=== PATIENT | male | born 1955 ===

== ENCOUNTER 2020-03-29 14:25 | Outpatient (REF) | payer MEDICARE, SELFPAY | END 2020-03-29 14:26 | disposition home or self-care (01) | LOC: HO.LAB 14:25 | PROVIDERS: Visit Provider Internal Medicine | DX: Z20.822 Contact with and (suspected) exposure to COVID-19 (principal) | CPT/HCPCS: 36415; C9803; U0003 ==

== ENCOUNTER → 2021-02-16 10:38 | Outpatient (BNVA) | payer MEDICARE, SELFPAY | PROVIDERS: PCP Internal Medicine; Visit Provider Urology | DX: N48.6 Induration penis plastica (principal); N40.1 Benign prostatic hyperplasia with lower urinary tract symptoms; N52.01 Erectile dysfunction due to arterial insufficiency; N13.8 Other obstructive and reflux uropathy | CPT/HCPCS: 99212 ==

== ENCOUNTER → 2021-03-23 12:45 | Outpatient (BNVA) | payer MEDICARE, SELFPAY | PROVIDERS: PCP Internal Medicine; Visit Provider Urology | DX: N48.6 Induration penis plastica (principal); N52.01 Erectile dysfunction due to arterial insufficiency; N40.1 Benign prostatic hyperplasia with lower urinary tract symptoms; N13.8 Other obstructive and reflux uropathy; E11.9 Type 2 diabetes mellitus without complications | CPT/HCPCS: 99212 ==

== ENCOUNTER → 2021-06-21 15:00 | Outpatient (BNVA) | payer MEDICARE, SELFPAY | PROVIDERS: PCP Internal Medicine; Visit Provider Urology | DX: N48.6 Induration penis plastica (principal); N52.03 Combined arterial insufficiency and corporo-venous occlusive erectile dysfunction; R73.03 Prediabetes; E78.5 Hyperlipidemia, unspecified | CPT/HCPCS: 99212 ==

== ENCOUNTER → 2021-06-21 15:13 | Outpatient (BNVA) | payer MEDICARE, SELFPAY | PROVIDERS: PCP Internal Medicine; Visit Provider Urology | DX: Z13.89 Encounter for screening for other disorder (principal) ==

== ENCOUNTER → 2021-09-07 08:32 | Outpatient (BNVA) | payer MEDICARE, SELFPAY | PROVIDERS: PCP Internal Medicine; Visit Provider Urology | DX: N48.6 Induration penis plastica (principal); N52.01 Erectile dysfunction due to arterial insufficiency | CPT/HCPCS: Q3014 ==

== ENCOUNTER 2021-10-24 10:41 | Day surgery (SDC) | payer MEDICARE, SELFPAY ==
--- NOTE | 2021-10-21 10:30 | HO.ANESPROP2 ---
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 Mother No problems noted. Surgical History Surgical History H/O shoulder surgery Social History Social History Patient Tobacco Use Status: Current everyday Tobacco user Tobacco use type: Cigarette Cigarette Packs Per Day: 10 Cigarettes Per Day: 200.0 Smoked in Last 30 Days: Yes Patient Interested in Nicotine Replacement: No Patient Given Instructions on How to Stop Smoking: Yes Date Education Initiated: 10/24/21 Second Hand Smoke Exposure: Yes Use of substances other than those prescribed or required for medical reasons: No Are you DNR?: No Advance Directives: No Advance Directives Information Provided: Yes Meds Allergies Allergy/AdvReac Type Severity Reaction Status Date / Time acetaminophen AdvReac Mild Stomach Verified 10/24/21 10:53 Upset Home Medications Medication Instructions Recorded Confirmed Last Taken Type amitriptyline 25 mg tablet mg PO BEDTIME 12/13/19 12/13/19 10/23/21 History atorvastatin 40 mg tablet 40 mg PO DAILY 12/13/19 10/24/21 10/23/21 History gabapentin 600 mg tablet 600 mg PO BID 12/13/19 10/18/21 10/23/21 History glipizide 5 mg tablet, extended 5 mg PO BID 12/13/19 10/18/21 10/23/21 History release 24 hr lisinopril 2.5 mg tablet 2.5 mg PO DAILY 12/13/19 10/18/21 10/23/21 History nicotine (polacrilex) 2 mg buccal 2 mg PO dyspnea 12/13/19 12/13/19 10/23/21 History lozenge omeprazole 20 mg capsule,delayed 20 mg PO DAILY 12/13/19 10/18/21 10/24/21 History release cholecalciferol (vitamin D3) 25 25 mcg PO DAILY 03/23/21 10/18/21 10/23/21 History mcg (1,000 unit) capsule ferrous gluconate 324 mg (38 mg 324 mg PO BEDTIME 03/23/21 10/18/21 10/23/21 History iron) tablet hydrocortisone 2.5 % topical cream appl topical 03/23/21 10/23/21 History blood sugar diagnostic (FSLogixTouch #10 ea 09/07/21 10/23/21 History Verio test strips) lancets 33 gauge (OneTouch Delica #100 ea 09/07/21 10/23/21 History Plus Lancet) trazodone 50 mg tablet 50 mg PO BEDTIME 09/07/21 10/18/21 10/23/21 History Exam Exam Date and Time: October 21, 2021 1030 Assessment and Plan Assessment Anesthesia Assessment: Chart Reviewed Documented by User: Lucy Bain MD 10/24/21 13:47 [facility] Past Medical History Medical History 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 Mother No problems noted. Family history of problems with anesthesia: No Surgical History Surgical History H/O shoulder surgery History of Problems with Anesthesia: No Social History Social History Patient Tobacco Use Status: Current everyday Tobacco user Tobacco use type: Cigarette Cigarette Packs Per Day: 10 Cigarettes Per Day: 200.0 Smoked in Last 30 Days: Yes Patient Interested in Nicotine Replacement: No Patient Given Instructions on How to Stop Smoking: Yes Date Education Initiated: 10/24/21 Second Hand Smoke Exposure: Yes Use of substances other than those prescribed or required for medical reasons: No Are you DNR?: No Advance Directives: No Advance Directives Information Provided: Yes Meds Allergies Allergy/AdvReac Type Severity Reaction Status Date / Time acetaminophen AdvReac Mild Stomach Verified 10/24/21 10:53 Upset Home Medications Medication Instructions Recorded Confirmed Last Taken Type amitriptyline 25 mg tablet mg PO BEDTIME 12/13/19 12/13/19 10/23/21 History atorvastatin 40 mg tablet 40 mg PO DAILY 12/13/19 10/24/21 10/23/21 History gabapentin 600 mg tablet 600 mg PO BID 12/13/19 10/18/21 10/23/21 History glipizide 5 mg tablet, extended 5 mg PO BID 12/13/19 10/18/21 10/23/21 History release 24 hr lisinopril 2.5 mg tablet 2.5 mg PO DAILY 12/13/19 10/18/21 10/23/21 History nicotine (polacrilex) 2 mg buccal 2 mg PO dyspnea 12/13/19 12/13/19 10/23/21 History lozenge omeprazole 20 mg capsule,delayed 20 mg PO DAILY 12/13/19 10/18/21 10/24/21 History release cholecalciferol (vitamin D3) 25 25 mcg PO DAILY 03/23/21 10/18/21 10/23/21 History mcg (1,000 unit) capsule ferrous gluconate 324 mg (38 mg 324 mg PO BEDTIME 03/23/21 10/18/21 10/23/21 History iron) tablet hydrocortisone 2.5 % topical cream appl topical 03/23/21 10/23/21 History blood sugar diagnostic (OneTouch #10 ea 09/07/21 10/23/21 History Verio test strips) lancets 33 gauge (DamirTouch Sidar #100 ea 09/07/21 10/23/21 History Plus Lancet) trazodone 50 mg tablet 50 mg PO BEDTIME 09/07/21 10/18/21 10/23/21 History Exam Airway Mallampati Class: I TM Dist: >3cm Neck ROM: Full Heart: RRR Lungs: CTA Assessment and Plan Final Anesthetic Review Family History of Problems with Anesthesia: No History of Problems with Anesthesia: No ASA Class: II Final Preanesthetic Review: No Changes in Pt Med Stat, Meds/Allgs Chart Reviewed, Consent Obtained/Reviewed and Anes Risks/Benef Reviewed Patient Risk: Intermediate Procedure Risk: Low Anesthetic Plan Anesthetic Plan: GA Disposition: Standard PACU
[2021-10-24] VITALS (9 sets, daily range): BP systolic 112–156; BP diastolic 50–78; PULSE 75–90; RESP 15–18; TEMP 36.6–36.9; O2SAT 95–99; BMI 28.7
--- NOTE | 2021-10-24 | ECG_ITS ---
Test Reason : preop Blood Pressure : / mmHG Vent. Rate : 083 BPM Atrial Rate : 083 BPM P-R Int : 206 ms QRS Dur : 084 ms QT Int : 346 ms P-R-T Axes : 055 001 020 degrees QTc Int : 406 ms Normal sinus rhythm Normal ECG No previous ECGs available Referred By: Emma Iraheta Electronically Signed By:INA LEONE
[2021-10-24 11:03] LABS: PLT CLUMP 1
[2021-10-24 11:05] LABS: Hematocrit 40.1 % (42.0-52.0); Hemoglobin 13.2 g/dl (14.0-18.0); Mean Corpuscular HGB Conc 32.9 g/dl (31.0-36.0); Mean Corpuscular Hemoglobin 30.3 pg (27.0-33.0); Mean Corpuscular Volume 92.2 fL (80.0-98.0); Mean Platelet Volume 10.6 fL (9.4-12.4); Red Blood Count 4.35 X10*6/uL (4.60-5.80); Red Cell Distribution Width 13.2 % (11.0-16.0)
[2021-10-24 11:09] LABS: Platelet Count 136 X10*3/uL (160-400); White Blood Count 6.8 X10*3/uL (4.8-10.8)
[2021-10-24 11:16] LABS: Anion Gap 13 (12-20); Blood Urea Nitrogen 18 mg/dL (9-16); Calcium 8.9 mg/dL (8.4-10.2); Carbon Dioxide 26 mmol/L (22-29); Chloride 107 mmol/L (96-108); Creatinine Clr Calc Pharmacy 68.5; Estimated Glomerular Filt Rate > 60; Glucose Fasting 145 mg/dL (60-99); Potassium 4.2 mmol/L (3.3-5.1); Sodium 142 mmol/L (135-145)
[2021-10-24] MEDS: Lactated Ringers 1,000 ML 100 ML IVCONT (11:39)
[2021-10-24 11:53] LABS: Glucose, Whole Blood 130 mg/dL (60-115)
--- NOTE | 2021-10-24 13:47 | MHC.SHP ---
Pre-Procedural Eval Section A Date of Service: 10/24/21 The patient is an INPATIENT: No Changes since office visit: No Cold of Flu in the past 2 weeks, No New Medical Problems, No Changes in Medication and No Patient answered all questions The History & Physical has been completed within 30 days and I have reviewed it.: Yes Section B Chief Complaint: Induration penis plastica Details of Present Illness: Peyronie's disease Relevant Family History (Specify if Yes): No Relevant Social History: None Present Medications: see Short Stay Collaborative assessment Medical History: No relevant PMH History of Previous Operations: No relevant previous surgery Allergies: Allergies Allergy/AdvReac Type Severity Reaction Status Date / Time acetaminophen AdvReac Mild Stomach Verified 10/24/21 10:53 Upset Review of Systems Sugical H&P ROS: Negative: Constitution, Cardiovascular, Respiratory, Neurological, Psychiatric, Hem-Onc, Allergic/Immunologic, Gastrointestinal, Genitourinary, Musculoskeletal, Integumentary, Endocrine and Eyes/Ears/Nose/Throat Exam Surgical H&P Exam: Normal: HEENT, Normal: Heart, Normal: Lungs, Normal: Extremities, Normal: Abdomen, Normal: Skin and Normal: Neurological Plan Diagnosis/Plan: Unchanged ( Peyroenies plication with artificial erection) I have reviewed the history and physical and performed a pertinent physical examination on my patient. No changes have occurred unless specified.
--- NOTE | 2021-10-24 15:33 | P.OP_ITS ---
Operative Note Operative Note Date of Service: 10/24/21 Narrative: PreOperative Diagnosis: Peyronie's disease with ventral penile curvature Post Operative Diagnosis: Peyronie's disease with ventral curvature Procedure: artificial erection with penile plication Surgeon: Dr Ronald Sotelo Anesthesia: general Indications for procedure: Penile curvature that has failed conservative therapy. The patient had undergone intermittent vacuum pump therapy with failure of resolution. Current erection with 45 degree ventral curvature. 0 degrees horizontal curvature. Curvature in distal half of penis when erect. [place] understands available options including risks for erectile dysfunction, bruising, need for secondary procedure. at baseline has minimal erectile issues. Procedure: After informed consent was verified the patient was brought to the operating room and placed in a supine position. Anesthesia was administered per protocol. The patient was prepped and draped in a sterile fashion. Safety pause time-out was performed. Antibiotics have been given. He has an intact foreskin. The foreskin was intact. Incision made at junction between foreskin and normal shaft tissue. This was placed after local anesthetic nerve block placed. the penis was then fully degloved. Using a [place] drain and a 21 gauge butterfly needle an artificial erection was induced with injectable saline 60cc. Using a marking pen 16 dots were placed 8 proximal and 8 distal to the point of maximum curvature as described by Demario. On each side the dots were placed 4 mm from the boundary between the spongiosum and the corpora. 3-0 Surgilon sutures were then placed through the 16 dots to create 8 separate sutures secured with rubber shod snaps. Each dot was touched with cautery prior to suture placement to reduce postprocedure neuralgia. A single tie was placed through each suture with rubber shod placed to control tension using a toothless picking machine operator helper below throw. The erection was reinforced and each suture was adjusted with 5 ties in order to give correction to the Forty- five degree curvature. 2 additional sutures were placed each side in the distal portion and erections were retested. Curvature was able to be corrected to between 5 and 10%. Excess suture material was removed. Each line of sutures was covered with a layer of tissue using a running 3-0 Vicryl. A 2nd layer of tissue was then placed over the 2 suture lines Skin was reapproximated using interrupted 4-0 chromic sutures. A dressing was placed consisting of ointment, zeroform gauze, Wong wrap and Coban dressing. The patient tolerated the procedure well, was extubated in the operating room and transferred in stable condition to the recovery area. Pathology: None Drains: none
[2021-10-24] MEDS: oxyCODONE HCl Immed Release 5 MG TABLET PO (16:42)
== END 2021-10-24 17:48 | disposition home or self-care (01) ==
PROVIDERS: Nurse Practitioner; PCP Internal Medicine; Visit Provider Urology
PROC: (CPT 54360; principal; 2021-10-24 11:50)
DX: N48.6 Induration penis plastica (principal); N52.01 Erectile dysfunction due to arterial insufficiency; E78.5 Hyperlipidemia, unspecified; E11.9 Type 2 diabetes mellitus without complications; Z79.84 Long term (current) use of oral hypoglycemic drugs; Z79.899 Other long term (current) drug therapy; Z88.8 Allergy status to other drugs, medicaments and biological substances; N40.1 Benign prostatic hyperplasia with lower urinary tract symptoms; F17.210 Nicotine dependence, cigarettes, uncomplicated
CPT/HCPCS: 54360; 36415; 80048; 82947; 85027; 93005; J0131; J0690; J2250; J2405; J2795; J3010

== ENCOUNTER → 2021-12-15 11:38 | Outpatient (BNVA) | payer MEDICARE, SELFPAY | PROVIDERS: PCP Internal Medicine; Visit Provider Urology | DX: N48.6 Induration penis plastica (principal); N47.1 Phimosis | CPT/HCPCS: 99212 ==

== ENCOUNTER 2022-01-30 10:56 | Day surgery (SDC) | payer MEDICARE, SELFPAY ==
[2022-01-23 13:30] VITALS: BMI 25.6
--- NOTE | 2022-01-27 10:32 | HO.ANESPROP2 ---
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 Mother No problems noted. Family history of problems with anesthesia: No Surgical History Surgical History H/O shoulder surgery History of arthroscopy of right knee History of surgery Hx of colonoscopy History of Problems with Anesthesia: No Social History Social History Patient Tobacco Use Status: Current everyday Tobacco user Tobacco use type: Cigarette Cigarette Packs Per Day: 0.5 Cigarettes Per Day: 10.0 Second Hand Smoke Exposure: Yes Use of substances other than those prescribed or required for medical reasons: No Are you DNR?: No Advance Directives: No Advance Directives Information Provided: Yes Meds Allergies Allergy/AdvReac Type Severity Reaction Status Date / Time acetaminophen AdvReac Mild Stomach Verified 01/23/22 12:35 Upset Home Medications Medication Instructions Recorded Confirmed Last Taken Type amitriptyline 25 mg tablet 25 mg PO BEDTIME 12/13/19 01/23/22 10/23/21 History atorvastatin 40 mg tablet 40 mg PO DAILY 12/13/19 01/23/22 10/23/21 History lisinopril 2.5 mg tablet 2.5 mg PO DAILY 12/13/19 01/23/22 10/23/21 History omeprazole 20 mg capsule,delayed 20 mg PO DAILY 12/13/19 01/23/22 10/24/21 History release cholecalciferol (vitamin D3) 25 25 mcg PO DAILY 03/23/21 01/23/22 10/23/21 History mcg (1,000 unit) capsule ferrous gluconate 324 mg (38 mg 324 mg PO BEDTIME 03/23/21 01/30/22 10/23/21 History iron) tablet hydrocortisone 2.5 % topical cream 1 appl topical DAILY PRN 03/23/21 01/30/22 10/23/21 History hemmorhoids blood sugar diagnostic (OneTouch #10 ea 09/07/21 10/23/21 History Verio test strips) lancets 33 gauge ([place] High StreetTouch Delica #100 ea 09/07/21 10/23/21 History Plus Lancet) trazodone 50 mg tablet 50 mg PO BEDTIME 09/07/21 01/23/22 10/23/21 History glipizide 10 mg tablet 10 mg PO BID 12/12/21 01/23/22 Unknown History Exam Exam Date and Time: January 27, 2022 1032 Height,Weight and Vital Signs: Height 5 ft 9.5 in Weight 79.832 kg Pertinent Lab Results Pertinent Lab Results: Laboratory Tests 10/24/21 10/24/21 10:55 10:55 WBC 6.8 Hgb 13.2 L Hct 40.1 L Plt Count 136 L Sodium 142 Potassium 4.2 Chloride 107 Carbon Dioxide 26 BUN 18 H Creatinine 1.20 Narrative Narrative: EKG 10/2021 Vent. Rate : 083 BPM ? ? Atrial Rate : 083 BPM ?? P-R Int : 206 ms? QRS Dur : 084 ms ? ? QT Int : 346 ms ? ? ? P-R-T Axes : 055 001 020 degrees ?? QTc Int : 406 ms ? 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 Mother No problems noted. Surgical History Surgical History H/O shoulder surgery History of arthroscopy of right knee History of surgery Hx of colonoscopy Social History Social History Patient Tobacco Use Status: Current everyday Tobacco user Tobacco use type: Cigarette Cigarette Packs Per Day: 0.5 Cigarettes Per Day: 10.0 Second Hand Smoke Exposure: Yes Use of substances other than those prescribed or required for medical reasons: No Are you DNR?: No Advance Directives: No Advance Directives Information Provided: Yes Meds Allergies Allergy/AdvReac Type Severity Reaction Status Date / Time acetaminophen AdvReac Mild Stomach Verified 01/23/22 12:35 Upset Home Medications Medication Instructions Recorded Confirmed Last Taken Type amitriptyline 25 mg tablet 25 mg PO BEDTIME 12/13/19 01/23/22 10/23/21 History atorvastatin 40 mg tablet 40 mg PO DAILY 12/13/19 01/23/22 10/23/21 History lisinopril 2.5 mg tablet 2.5 mg PO DAILY 12/13/19 01/23/22 10/23/21 History omeprazole 20 mg capsule,delayed 20 mg PO DAILY 12/13/19 01/23/22 10/24/21 History release cholecalciferol (vitamin D3) 25 25 mcg PO DAILY 03/23/21 01/23/22 10/23/21 History mcg (1,000 unit) capsule ferrous gluconate 324 mg (38 mg 324 mg PO BEDTIME 03/23/21 01/30/22 10/23/21 History iron) tablet hydrocortisone 2.5 % topical cream 1 appl topical DAILY PRN 03/23/21 01/30/2210/23/22 History hemmorhoids blood sugar diagnostic (OneTouch #10 ea 09/07/21 10/23/21 History Verio test strips) lancets 33 gauge ([facility] Delica #100 ea 09/07/21 10/23/21 History Plus Lancet) trazodone 50 mg tablet 50 mg PO BEDTIME 09/07/21 01/23/22 10/23/21 History glipizide 10 mg tablet 10 mg PO BID 12/12/21 01/23/22 Unknown History Exam Airway Mallampati Class: I TM Dist: >3cm Neck ROM: Full Denture: Upper Heart: rrr Lungs: clear Assessment and Plan Final Anesthetic Review NPO: Yes ASA Class: III Final Preanesthetic Review: No Changes in Pt Med Stat, Meds/Allgs Chart Reviewed, Consent Obtained/Reviewed and Anes Risks/Benef Reviewed Patient Risk: Intermediate Procedure Risk: Low Anesthetic Plan Anesthetic Plan: GA Disposition: Standard PACU
[2022-01-30 11:05] VITALS: BMI 26.2
[2022-01-30 11:20] VITALS: BP 134/82; PULSE 86; RESP 16; TEMP 36.2; O2SAT 98
[2022-01-30 11:20] LABS: Glucose, Whole Blood 196 mg/dL (60-115)
[2022-01-30] MEDS: Lactated Ringers 1,000 ML 100 ML IVCONT (11:45)
--- NOTE | 2022-01-30 11:59 | P.HPSUR_ITS ---
Pre-Procedural Eval Section A Date of Service: 01/30/22 The patient is an INPATIENT: No Changes since office visit: Yes Cold of Flu in the past 2 weeks, Yes New Medical Problems, Yes Changes in Medication and Yes Patient answered all questions The History & Physical has been completed within 30 days and I have reviewed it.: Yes Section B Chief Complaint: Phimosis Details of Present Illness: phimosis with difficulty retracting foreskin Allergies: Allergies Allergy/AdvReac Type Severity Reaction Status Date / Time acetaminophen AdvReac Mild Stomach Verified 01/23/22 12:35 Upset Review of Systems Sugical H&P ROS: Negative: Constitution, Cardiovascular, Respiratory, Neurolo gical, Psychiatric, Hem-Onc, Allergic/Immunologic, Gastrointestinal, Genitourinary, Musculoskeletal, Integumentary, Endocrine and Eyes/Ears/Nose/Throat Exam Surgical H&P Exam: Normal: HEENT, Normal: Heart, Normal: Lungs, Normal: Extremities, Normal: Abdomen, Normal: Skin and Normal: Neurological Plan Diagnosis/Plan: Unchanged ( circumcision) I have reviewed the history and physical and performed a pertinent physical examination on my patient. No changes have occurred unless specified.
[2022-01-30 14:00] VITALS: BP 176/88; PULSE 86; RESP 14; TEMP 36.4; O2SAT 100
--- NOTE | 2022-01-30 14:04 | P.OP_ITS ---
Operative Note Operative Note Date of Service: 01/30/22 Narrative: PreOperative Diagnosis: Phimosis Post Operative Diagnosis: Phimosis, penile lesions Procedure: Circumcision with penile lesion removal Surgeon: Dr Ronald Sotelo Anesthesia: General Indications for procedure: Had Peyronies with repair. Phimotic ring and scarring on underside of penis from incision. Lesion on side of penis. Procedure: After informed consent was verified the patient was brought to the operating room and placed in a supine position. Anesthesia was administered per protocol. The patient was prepped and draped sterile fashion. Safety pause time-out was performed. Antibiotics have been given. The penis was examined and proximal incision marked that lay just proximal to the resting position of the penile sulcus. This was followed around the circumference of the penis. A penile ring block was performed using 1% lidocaine with no epinephrine. Approximately 8 cc. The foreskin was unable to be withdrawn. A dorsal slit was performed and the foreskin was retracted. Sharp incision with scapel was made along to prior incision site. The proximal incision was developed that had been marked was developed with sharp blade running circumferentially around the penis. The skin was to give a 1 cm separation between the foreskin in the remaining penile shaft skin. Using clamps the dorsal skin was elevated. Using Metzenbaum scissors the avascular plane was entered and proximal and distal incision were joined. Careful dissection was performed around the ventral surface of the penis. The bridging skin was elevated and clamped. It was then divided using Bovie. The sleeve of tissue was then removed circumferentially around the penis using cautery in order to minimize bleeding. The shaft was then examined in any bleeding areas were controlled. More local anesthetic was injected into the plane beneath avascular plane to help with postprocedure pain management. The skin edges after they were appropriately examined low reapposed. A 3-0 chromic suture was placed at 12:00 o'clock and 06:00 o'clock positions. Interrupted 3-0 was then placed the 09:00 o'clock and 3 o'clock position. Each quadrant was then filled with 3 sutures using 4-0 chromic. The small lesions on the right distal side of the penile shaft were removed sha rply and closed with interuptted 4.0 chromic. At the completion of the procedure there was adequate hemostasis. The incision was washed and dried. Antibiotic cream was applied to the incision. A Wong wrap was applied followed by a Coban dressing. Xeroform gauze had been used to cover antibiotic ointment. He tolerated the procedure well and was extubated in the room and transferred in stable condition to the recovery area. Pathology: Foreskin Drains: none
[2022-01-30 14:05] VITALS: BP 171/86; PULSE 81; RESP 16; O2SAT 99
[2022-01-30] MEDS: oxyCODONE HCl Immed Release 5 MG TABLET PO (14:07)
[2022-01-30 14:10] VITALS: BP 164/89; PULSE 80; RESP 16; O2SAT 99
[2022-01-30] MEDS: fentaNYL citrate/PF 100 MCG/2 ML VIAL 25 MCG IVPUSH (14:10)
[2022-01-30 14:15] VITALS: BP 162/71; PULSE 76; RESP 16; TEMP 36.8; O2SAT 98
== END 2022-01-30 15:50 | disposition home or self-care (01) ==
PROVIDERS: PCP Internal Medicine; Visit Provider Urology
PROC: (CPT 54161; principal; 2022-01-30 12:30)
DX: N47.1 Phimosis (principal); N48.89 Other specified disorders of penis; N52.9 Male erectile dysfunction, unspecified; Z87.438 Personal history of other diseases of male genital organs; E11.22 Type 2 diabetes mellitus with diabetic chronic kidney disease; N18.30 Chronic kidney disease, stage 3 unspecified; Z79.84 Long term (current) use of oral hypoglycemic drugs; E78.00 Pure hypercholesterolemia, unspecified; E78.5 Hyperlipidemia, unspecified; K21.9 Gastro-esophageal reflux disease without esophagitis; Z79.899 Other long term (current) drug therapy; Z88.8 Allergy status to other drugs, medicaments and biological substances; F17.210 Nicotine dependence, cigarettes, uncomplicated; Z86.16 Personal history of COVID-19
CPT/HCPCS: 54161; 11421; 82947; 88304; 88305; J0690; J1100; J2250; J2405; J2795; J3010

== ENCOUNTER → 2022-02-28 13:31 | Outpatient (BNVA) | payer MEDICARE, SELFPAY | PROVIDERS: PCP Internal Medicine; Visit Provider Urology | DX: Z13.89 Encounter for screening for other disorder (principal) ==

== ENCOUNTER 2022-10-05 12:07 | Outpatient (AMB) | payer MEDICARE, SELFPAY ==
[2022-10-05 12:12] VITALS: BP 143/77; PULSE 92; BMI 24.7
--- NOTE | 2022-10-05 12:12 | MHC.OFFVIS ---
Intake Vital Signs 10/05/22 12:12 Height 5 ft 9 in Weight 167 lb 8.821 oz BMI 24.7 BP 143/77 H Blood Pressure Location Lt brachial Position Sitting Pulse 92 Intake Visit Reasons: Abdominal pain Intake Note: Wellington presents in office as a new.patient for abdominal pain PT CC: abdominal pain , bloating constipation/diarrhea, GERD, gassy , loss of appetite, some rectal bleeding (haemorrhoids) pt denies any other GI Issues Director Appointment Required: No Accompanied by: Spouse Allergies acetaminophen Adverse Reaction (Mild, Verified 10/05/22 12:13) Stomach Upset HPI Abdominal pain HPI Details 67-year-old male here for initial evaluation of abdominal pain. He is referred by the Aldo Page MD of [facility]. PMX AAA-mild Smoker Chronic kidney disease stage 3 Diabetes High cholesterol GERD Lumbar herniated disc Knee pain PTSD * SURGICAL HISTORY Right knee arthroscopy Colonoscopy-2014 several diminutive hyperplastic polyps Rt TKR * ALLERGIES Acetaminophen - stomach upset * LABS: NO CURRENT LABS TODAY'S VISIT He has been having trouble over the past year since he got COVID. He is having a loss of appetite, wt loss, bloating and gas and CIC alt with diarrhea. Has lost > 30lb r/t this. HE has not lost his sense of smell. He gets hungry but he will sit down to eat and then after a certain amt the food repulses me. His is a great cook and tries to cook all of his favorites but to no avail. This is concerning could the patient says he has never been under 170 even in his youth when he was active in sports. He has developed a lot of malodorous burping. The brother of the patient developed a similar presentation when he was in CKD and on dialysis and eventually became . The patient has chronic kidney disease supposedly stage III but his GFR is greater than 60 and quite normal. He has been trying to get an appt with [email or web address] over the past year but appt keep being cancelled. This explains why he has lost so much weight and has not been addressed at least from a specialist point of view. Apparently has been appealing to his primary care provider who did not find the weight loss alarming. No known FHX of stomach or CRC or food allergies. HE is a diabetic and his A1C historically was 9.8 and now is 6.8. i peruse his pt portal labs and GFR>60, normal CBC and chem panel in 2021. Diabetic gastroparesis certainly is a consideration in the differential diagnosis. Last colonoscopy at [place] 10 years ago normal ? polyp. NO severe abd pain some cramping with bloating. His heartburn is well controlled on his omeprazole. Will get GES, US, EGD, labs incl RAST, TTGA, pancreatic elastase, HP stool. ROV 3 weeks. 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 Mother No problems noted. Social History Patient Tobacco Use Status: Current everyday Tobacco user Tobacco use type: Cigarette Cigarette Packs Per Day: 0.5 Cigarettes Per Day: 10.0 Second Hand Smoke Exposure: Yes Review of Systems Const Denies fatigue, Denies fever(s), Denies night sweats, Reports poor appetite and Reports weight loss (30 lb over the last year) Eyes Details: glasses Reports requires corrective lenses ENT Reports Normal hearing present, Denies dental pain, Denies dysphagia, Denies hearing loss, Denies mouth pain, Denies odynophagia, Denies throat swelling, Denies tongue swelling and Reports other (Dentition adequate) Card Reports no additional complaints Resp Reports no additional complaints GI Reports abdominal pain, Reports belching, Denies melena, Reports bloating, Denies hematochezia, Reports constipation, Denies GI cramping, Denies dysphagia, Reports excessive flatus, Reports early satiety, Reports heartburn, Reports diarrhea, Denies nausea, Denies odynophagia, Denies vomiting and Denies hematemesis Skin/Breast Denies pruritus, Denies lesions, Denies rash and Denies jaundice Neuro Reports Normal hearing present and Denies Abnormal speech present Endo Denies fatigue Aller/Immun Denies throat swelling and Denies tongue swelling Physical Exam Vital Signs: Last Vital Signs Pulse 92 10/05/22 12:12 BP 143/77 H 10/05/22 12:12 BMI result Body Mass Index 24.7 Const General: cooperative, no acute distress, well developed and well groomed Nutritional Appearance: average body habitus and well nourished Orientation/consciousness: oriented to person, oriented to place and oriented to time Limitations: No language barrier HEENT Head: Yes normocephalic and Yes atraumatic Eyes General: appearance normal, both eyes and all related structures Pupils: Equal, round and reactive pupils present Neck Neck: Yes normal visual inspection and Yes no lymphadenopathy Thyroid: Thyroid normal Resp Effort & Inspection: normal respiratory effort and able to speak in complete sentences Auscultation: clear to auscultation bilaterally Cardio Rate: regular rate Rhythm: regular rhythm Heart sounds: Normal, physiologic split S2 sound present Peripheral pulses: radial pulses present and posterior tibial pulses present GI Inspection: No distended and No Abdominal panniculus present Palpation (GI): Soft to palpation, nontender, no guarding, not rigid and No hepatosplenomegaly present Percussion: Yes normal to percussion Auscultation: normal bowel sounds Rectal Exam - Male: Yes deferred Skin General skin exam: no rashes or lesions noted, turgor normal, skin not dry, no jaundice, No spider nevi and no striae Rashes: no rashes Nails: normal Neuro General: oriented to person, oriented to place and oriented to time Cranial nerves: Yes Equal, round and reactive pupils present and Yes Normal hearing present Speech: No Abnormal speech present Extrem General: Yes normal to inspection, No clubbing, No cyanosis and No edema Psych Appearance: grossly normal and well kempt Mental Status: mental status grossly normal Speech and movement: Normal speech and movement present Affect: normal affect Attitude: cooperative Thought process: Normal thought process present and not confabulating Thought content: Normal thought content present Insight: Fair insight present (Psych) Judgement: Fair judgement present (Psych) Assessment & Plan Assessment & Plan (1) Diarrhea: Comment: some mixed Code(s): R19.7 - Diarrhea, unspecified Plan: He has been having trouble over the past year since he got COVID. He is having a loss of appetite, wt loss, bloating and gas and CIC alt with diarrhea. Has lost > 30lb r/t this. HE has not lost his sense of smell. He gets hungry but he will sit down to eat and then after a certain amt the food repulses me. His is a great cook and tries to cook all of his favorites but to no avail. This is concerning could the patient says he has never been under 170 even in his youth when he was active in sports. He has developed a lot of malodorous burping. The brother of the patient developed a similar presentation when he was in CKD and on dialysis and eventually became . The patient has chronic kidney disease supposedly stage III but his GFR is greater than 60 and quite normal. He has been trying to get an appt with [email or web address] over the past year but appt keep being cancelled. This explains why he has lost so much weight and has not been addressed at least from a specialist point of view. Apparently has been appealing to his primary care provider who did not find the weight loss alarming. No known FHX of stomach or CRC or food allergies. HE is a diabetic and his A1C historically was 9.8 and now is 6.8. i peruse his pt portal labs and GFR>60, normal CBC and chem panel in 2021. Diabetic gastroparesis certainly is a consideration in the differential diagnosis. He has been vaccinated against hepatitis a and B and is negative for hepatitis C. I am uncertain if there has been any HIV testing. He only takes glipizide for his diabetes and his A1c is only better controlled because of the weight loss. Last colonoscopy at [place] 10 years ago normal ? polyp. NO severe abd pain some cramping with bloating. His heartburn is well controlled on his omeprazole. Will get GES, US, EGD, labs incl RAST, TTGA, pancreatic elastase, HP stool. ROV 3 weeks. I also see his as 1 of my patients. (2) Weight loss: Code(s): R63.4 - Abnormal weight loss (3) Early satiety: Code(s): R68.81 - Early satiety (4) Upper abdominal pain: Comment: bloating/gas Code(s): R10.10 - Upper abdominal pain, unspecified Orders: Orders Pancreatic Elastase-1 Today R10.10 - Upper abdominal pain, unspecified, R19.7 - Diarrhea, unspecified, R63.4 - Abnormal weight loss, R68.81 - Early satiety Amylase Today R10.10 - Upper abdominal pain, unspecified, R19.7 - Diarrhea, unspecified, R63.4 - Abnormal weight loss, R68.81 - Early satiety C Reactive Protein Today R10.10 - Upper abdominal pain, unspecified, R19.7 - Diarrhea, unspecified, R63.4 - Abnormal weight loss, R68.81 - Early satiety Lipase Today R10.10 - Upper abdominal pain, unspecified, R19.7 - Diarrhea, unspecified, R63.4 - Abnormal weight loss, R68.81 - Early satiety Rast Allergen Today R10.10 - Upper abdominal pain, unspecified, R19.7 - Diarrhea, unspecified, R63.4 - Abnormal weight loss, R68.81 - Early satiety TSH reflex Free T4 Today R10.10 - Upper abdominal pain, unspecified, R19.7 - Diarrhea, unspecified, R63.4 - Abnormal weight loss, R68.81 - Early satiety Gliadin Ab Panel Today R10.10 - Upper abdominal pain, unspecified, R19.7 - Diarrhea, unspecified, R63.4 - Abnormal weight loss, R68.81 - Early satiety Transglutaminase IgA Today R10.10 - Upper abdominal pain, unspecified, R19.7 - Diarrhea, unspecified, R63.4 - Abnormal weight loss, R68.81 - Early satiety Transglutaminase Ab IgG Today R10.10 - Upper abdominal pain, unspecified, R19.7 - Diarrhea, unspecified, R63.4 - Abnormal weight loss, R68.81 - Early satiety NM gastric emptying study Today R10.10 - Upper abdominal pain, unspecified, R19.7 - Diarrhea, unspecified, R63.4 - Abnormal weight loss, R68.81 - Early satiety H pylori Ag Stool Today R10.10 - Upper abdominal pain, unspecified, R19.7 - Diarrhea, unspecified, R63.4 - Abnormal weight loss, R68.81 - Early satiety US abdomen complete Today R10.10 - Upper abdominal pain, unspecified, R19.7 - Diarrhea, unspecified, R63.4 - Abnormal weight loss, R68.81 - Early satiety UA CC w/rflx Micro + Cult Today R10.10 - Upper abdominal pain, unspecified, R19.7 - Diarrhea, unspecified, R63.4 - Abnormal weight loss, R68.81 - Early satiety EGD with [facility] - GI Use Only Today R63.4 - Abnormal weight loss Coding Level of Care Code New Pt Level 3 (18543) Diagnoses Diarrhea R19.7 Weight loss R63.4 Early satiety R68.81 Upper abdominal pain R10.10
== END 2022-10-05 13:10 | disposition home or self-care (01) ==
PROVIDERS: PCP Internal Medicine; Visit Provider Nurse Practitioner
DX: R19.7 Diarrhea, unspecified (principal); R63.4 Abnormal weight loss; R68.81 Early satiety; R10.10 Upper abdominal pain, unspecified
CPT/HCPCS: 99203

== ENCOUNTER 2022-10-05 12:07 | Outpatient (REF) | payer OTHER, SELFPAY ==
[2022-10-05 16:40] LABS: Amylase 82 U/L (28-100); Lipase 54 U/L (8-78)
[2022-10-05 16:51] LABS: Free T4 (Free Thyroxine) 0.71 ng/dL (0.71-1.85)
[2022-10-05 19:02] LABS: Appearance Urine Clear; Color Urine Yellow; Glucose Urine UA >=1000 mg/dL (Negative); Leukocyte Esterase Urine Negative (Negative); Nitrite Urine Negative (Negative); Specific Gravity - Urine 1.025 (1.005-1.025); UMIC TRIGGER UACC YES; Urine Blood Negative (Negative); Urine Ketones Negative (Negative); Urine Protein Negative (Neg-Trace)
[2022-10-05 19:10] LABS: Bacteria Urine None Seen (None Seen); Hyaline Casts Urine 0-2 /LPF (0-2); RBC Urine 0-2 /HPF (0-2); Squamous Epithelial Cell Urine 0-2 /HPF (0-2); WBC Urine 0-5 /HPF (0-5)
[2022-10-09 18:47] LABS: Transglutaminase Ab IgG <1.0 U/mL; Transglutaminase IgA <1.0 U/mL
[2022-10-11 09:19] LABS: Gliadin Deamidated IgG Ab <1.0 U/mL
== END 2022-10-05 12:08 | disposition home or self-care (01) ==
LOC: HO.LAB 12:07
PROVIDERS: PCP Internal Medicine; Visit Provider Nurse Practitioner
DX: K21.9 Gastro-esophageal reflux disease without esophagitis (principal); K64.9 Unspecified hemorrhoids; R10.10 Upper abdominal pain, unspecified; R68.81 Early satiety; R63.4 Abnormal weight loss; R19.7 Diarrhea, unspecified; R14.0 Abdominal distension (gaseous); Z86.16 Personal history of COVID-19; Z91.09 Other allergy status, other than to drugs and biological substances
CPT/HCPCS: 36415; 81001; 81003; 82150; 83690; 84439; 84443; 86003; 86140; 86258; 86364; 99202

== ENCOUNTER → 2022-10-17 08:26 | Outpatient (REF) | payer MEDICARE, SELFPAY ==
--- NOTE | ~2022-10-17 | NM_ITS ---
EXAMINATION: NM RADIONUCLIDE SOLID FOOD GASTRIC EMPTYING 4-HOUR STUDY CLINICAL INFORMATION: Diarrhea, unspecified COMPARISON: None available. TECHNIQUE: A standard meal consisting of 4 oz of Egg Beaters brand tagged with 890 microcuries Tc-99m Sulfur Colloid, 8 oz water and 2 slices of toast with jelly was administered orally to the patient. Images were obtained using a dual head gamma camera in the anterior and posterior projections over of the stomach immediately post ingestion and at hourly intervals up to 4 hours post ingestion. The anterior and posterior counts at each time interval were averaged using the geometric mean and expressed as percentage of the immediate post ingestion counts. FINDINGS: There is good visualization of activity in the stomach immediately post ingestion. As the study progresses, there is good clearance of activity from the stomach and visualization of progressively increasing small bowel activity. By the end of the study, there is almost no retention noted in the stomach. Retention in the stomach at each time interval was: 1 hour 67% (normal 37%-90%) 2 hours 51% (normal 30%-60%) 3 hours 15% 4 hours 8% (normal 0%-10%) NM/NM gastric emptying study IMPRESSION: Normal 4-hour solid food gastric emptying study.
== END ==
LOC: HO.NUCMED 08:26
PROVIDERS: PCP Internal Medicine; Visit Provider Nurse Practitioner
DX: R10.10 Upper abdominal pain, unspecified (principal); R19.7 Diarrhea, unspecified; R63.4 Abnormal weight loss; R68.81 Early satiety
CPT/HCPCS: 78264; A9541

== ENCOUNTER 2022-10-20 10:25 | Outpatient (REF) | payer MEDICARE, SELFPAY ==
--- NOTE | ~2022-10-20 | US_ITS ---
EXAMINATION: US ABDOMEN COMPLETE CLINICAL INFORMATION: Diarrhea, unspecified. COMPARISON: None available. TECHNIQUE: Real-time imaging of the abdominal viscera. FINDINGS: PANCREAS: Normal. ABDOMINAL AORTA: Aneurysmal dilatation of the abdominal aorta to 3.3 x 1.3 cm distally. Atherosclerosis of the abdominal aorta. INFERIOR VENA CAVA: Visualized portions are normal. LIVER: The liver is normal in size. The liver contour is normal. Parenchymal echogenicity is normal. No focal hepatic lesion. There is no intrahepatic biliary duct dilatation seen. Portal vein is mildly dilated to 1.6 cm. GALLBLADDER: Normal. The gallbladder is physiologically distended without evidence of stones, sludge, polyps, wall thickening or pericholecystic fluid. COMMON BILE DUCT: Normal in caliber measuring 0.3 cm in diameter. RIGHT KIDNEY: No hydronephrosis or renal calculi. The kidney measures 9.9 cm in maximum dimension. Subcentimeter benign-appearing renal cyst, no follow-up imaging recommended. LEFT KIDNEY: Normal. No hydronephrosis. No renal calculi or focal parenchymal lesions. The kidney measures 10.3 cm in maximum dimension. SPLEEN: Normal. The spleen measures 12.4 cm in maximum dimension. FREE FLUID: None. US/US abdomen complete IMPRESSION: Aneurysmal dilatation of the abdominal aorta to 3.3 cm distally. Recommend followup every 3 years. Reference: J Am Cindy Radiol 2013; 10 (10): 789-794. Portal vein is mildly dilated to 1.6 cm, which could be seen in the setting of portal venous hypertension in the appropriate clinical setting. The report will be called to the ordering clinician by a [facility] [employer]ing [employer] Engineer.
== END 2022-10-20 10:26 | disposition home or self-care (01) ==
LOC: HO.US 10:25
PROVIDERS: PCP Internal Medicine; Visit Provider Nurse Practitioner
DX: R10.10 Upper abdominal pain, unspecified (principal); R19.7 Diarrhea, unspecified; R63.4 Abnormal weight loss; R68.81 Early satiety
CPT/HCPCS: 76700

== ENCOUNTER 2022-10-26 14:17 | Outpatient (AMB) | payer MEDICARE, SELFPAY ==
[2022-10-26 14:25] VITALS: BP 141/81; PULSE 88; BMI 24.0
--- NOTE | 2022-10-26 14:25 | MHC.OFFVIS ---
Intake Vital Signs 10/26/22 14:25 Height 5 ft 9 in Weight 162 lb 11.218 oz BMI 24.0 BP 141/81 H Blood Pressure Location Lt brachial Position Sitting Pulse 88 Intake Visit Reasons: 3 week follow up Intake Note: Wellington presents in office today in 3 weeks follow up for abdominal pain. CC: PT c/o abdominal pain, GERD, and loss of appetite. He states he is better from constipation and diarrhea. 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 He is having a loss of appetite, wt loss, bloating and gas and CIC alt with diarrhea.? Has lost > 30lb r/t this. HE has not lost his sense of smell. He gets hungry but he will sit down to eat and then after a certain amt the food repulses me. His is a great cook and tries to cook all of his favorites but to no avail.? This is concerning could the patient says he has never been under 170 even in his youth when he was active in sports. He has developed a lot of malodorous burping. The brother of the patient developed a similar presentation when he was in CKD and on dialysis and eventually became .? The patient has chronic kidney disease supposedly stage III but his GFR is greater than 60 and quite normal. He has been trying to get an appt with [facility] over the past year but appt keep being cancelled.? This explains why he has lost so much weight and has not been addressed at least from a specialist point of view.? Apparently has been appealing to his primary care provider who did not find the weight loss alarming. No known FHX of stomach or CRC or food allergies. HE is a diabetic and his A1C historically was 9.8 and now is 6.8. i peruse his pt portal labs and GFR>60, normal CBC and chem panel in 2021.? Diabetic gastroparesis certainly is a consideration in the differential diagnosis.? He has been vaccinated against hepatitis a and B and is negative for hepatitis C.? I am uncertain if there has been any HIV testing.? He only takes glipizide for his diabetes and his A1c is only better controlled because of the weight loss. Last colonoscopy at [facility] 10 years ago normal ? polyp. NO severe abd pain some cramping with bloating.? His heartburn is well controlled on his omeprazole. Will get GES, US, EGD, labs incl RAST, TTGA, pancreatic elastase, HP stool. ROV 3 weeks.? I also see his as 1 of my patients. (2) Weight loss: ?Code(s): R63.4 - Abnormal weight loss (3) Early satiety: ?Code(s): R68.81 - Early satiety (4) Upper abdominal pain: ?Comment: bloating/gas ?Code(s): R10.10 - Upper abdominal pain, unspecified ? ? ? Orders: Orders Pancreatic Elastas e-1 Today R10.10 - Upper abd ominal pain, unspe cified, R19.7 - Di arrhea, unspecifie d, R63.4 - Abnorma l weight loss, R68 .81 - Early satiet y ? Amylase Today R10.10 - Upper abd ominal pain, unspe cified, R19.7 - Di arrhea, unspecifie d, R63.4 - Abnorma l weight loss, R68 .81 - Early satiet y ? C Reactive Protein Today R10.10 - Upper abd ominal pain, unspe cified, R19.7 - Di arrhea, unspecifie d, R63.4 - Abnorma l weight loss, R68 .81 - Early satiet y ? Lipase Today R10.10 - Upper abd ominal pain, unspe cified, R19.7 - Di arrhea, unspecifie d, R63.4 - Abnorma l weight loss, R68 .81 - Early satiet y ? Rast Allergen Today R10.10 - Upper abd ominal pain, unspe cified, R19.7 - Di arrhea, unspecifie d, R63.4 - Abnorma l weight loss, R68 .81 - Early satiet y ? TSH reflex Free T4 Today R10.10 - Upper abd ominal pain, unspe cified, R19.7 - Di arrhea, unspecifie d, R63.4 - Abnorma l weight loss, R68 .81 - Early satiet y ? Gliadin Ab Panel Today R10.10 - Upper abd ominal pain, unspe cified, R19.7 - Di arrhea, unspecifie d, R63.4 - Abnorma l weight loss, R68 .81 - Early satiet y ? Transglutaminase I gA Today R10.10 - Upper abd ominal pain, unspe cified, R19.7 - Di arrhea, unspecifie d, R63.4 - Abnorma l weight loss, R68 .81 - Early satiet y ? Transglutaminase A b IgG Today R10.10 - Upper abd ominal pain, unspe cified, R19.7 - Di arrhea, unspecifie d, R63.4 - Abnorma l weight loss, R68 .81 - Early satiet y ? NM gastric emptyin g study Today R10.10 - Upper abd ominal pain, unspe cified, R19.7 - Di arrhea, unspecifie d, R63.4 - Abnorma l weight loss, R68 .81 - Early satiet y ? H pylori Ag Stool Today R10.10 - Upper abd ominal pain, unspe cified, R19.7 - Di arrhea, unspecifie d, R63.4 - Abnorma l weight loss, R68 .81 - Early satiet y ? US abdomen complet e Today R10.10 - Upper abd ominal pain, unspe cified, R19.7 - Di arrhea, unspecifie d, R63.4 - Abnorma l weight loss, R68 .81 - Early satiet y ? UA CC w/rflx Micro + Cult Today R10.10 - Upper abd ominal pain, unspe cified, R19.7 - Di arrhea, unspecifie d, R63.4 - Abnorma l weight loss, R68 .81 - Early satiet y ? EGD with [facility] - G I Use Only Today R63.4 - Abnormal w eight loss LABS: Laboratory Tests 10/05/22 10/05/22 13:34 13:34 C-Reactive Protein 0.10 Amylase 82 Lipase 54 TSH 4.30 H Free T4 0.71 Tiss Transglutamin IgG <1.0 Tiss Transglutamin IgA <1.0 Anti-Gliadin IgG A b <1.0 Gliadin (Deamidat) IgA 4.0 Collection Date: 0 10/05/22 Collection Time: 1335 Source: Urine, Clean Catch Test Result Flag Referen ce Sit e Ur Color Yellow Ur Appear Cl ear PH 6.0 5.0-9.0 Ur G ezekiel >=1000 H Negative mg/dL Urine Blood Negative Negative Spec [place] Ur 1.025 1.005-1.025 Urine Prot ein Negative Ne g-Trace mg/dL Urine Ketone s Negative Nega tive mg/dL Ur Nitrite Negative Negati ve Ur Pro Esterase N egative Negative Ur RBC 0 -2 0-2 /HPF Ur WBC 0-5 0-5 /HPF Ur S alecia Epi 0-2 0-2 /HPF Ur Noemí t None Seen None Seen Ur Hyali ne Work Environment Safety Inspector 0-2 0-2 /LPF RAST PANEL SHOWS NO SIGNIFICANT FOOD ALLERGIES PANCREATIC A LAST TASTE STUDY WAS NOT OBTAINED. ULTRASOUND OF THE ABDOMEN 10/23/22 FINDINGS: PANCREAS: Normal. ABDOMINAL AORTA: Aneurysmal dilatation of the abdominal aorta to 3.3 x 1.3 cm distally. Atherosclerosis of the abdominal aorta. INFERIOR VENA CAVA: Visualized portions are normal. LIVER: The liver is normal in size. The liver contour is normal. Parenchymal echogenicity is normal. No focal hepatic lesion. There is no intrahepatic biliary duct dilatation seen. Portal vein is mildly dilated to 1.6 cm. GALLBLADDER: Normal. The gallbladder is physiologically distended without evidence of stones, sludge, polyps, wall thickening or pericholecystic fluid. COMMON BILE DUCT: Normal in caliber measuring 0.3 cm in diameter. RIGHT KIDNEY: No hydronephrosis or renal calculi. The kidney measures 9.9 cm in maximum dimension. Subcentimeter benign-appearing renal cyst, no follow-up imaging recommended. LEFT KIDNEY: Normal. No hydronephrosis. No renal calculi or focal parenchymal lesions. The kidney measures 10.3 cm in maximum dimension. SPLEEN: Normal. The spleen measures 12.4 cm in maximum dimension. FREE FLUID: None. US/US abdomen complete IMPRESSION: Aneurysmal dilatation of the abdominal aorta to 3.3 cm distally. Recommend followup every 3 years. Reference: J Am Cindy Radiol 2013; 10 (10): 789-794. ? Portal vein is mildly dilated to 1.6 cm, which could be seen in the setting of portal venous hypertension in the appropriate clinical setting. ? The report will be called to the ordering clinician by a [facility] Physician Composition Tile Layer. ? GASTRIC EMPTYING STUDY 10/17/22 IMPRESSION: Normal 4-hour solid food gastric emptying study. ? EGD BIOPSY TODAY'S VISIT HE HAS SIGNIFICANT GLUCOSURIA WHICH MAKES ME WONDER IF HE IS ON. A G LP 1 INHIBITOR. He is NOT! I will start him on metformin 500mg bid and progress as tolerated and he sill continue his glipizide. I will refer to endocrinology going forward. It seems clear to me that his weight loss and probably his her or related to poorly controlled diabetes as evidenced by the glucosuria and the profound weight loss. I think that the most important factor will be getting blood sugar to a place res actually metabolized thing some energy and not losing all through the urine. With this in mind if he can get in see endocrinology in does not tolerate metformin I may consider putting him on Lantus insulin or even Ozempic. I am quite surprised in stated age that his primary care provider had him on a very old diabetic insulin mimetic, glipizide, which has a very poor track record of diabetes control and all cause mortality. We go over all the rest of the labs any does not seem to have any significant food allergies or concern for inflammatory bowel disease. His thyroid seems to be struggling as his TSH is borderline high but I will reserve judgment on this until we have a chance to repeat the lab at a later date.. The ultrasound did not show any trouble with the gallbladder and he is aware of his aortic aneurysm which is monitored by his primary care provider. Also starting reglan 5mg qidachs as he most likely has gastroparesis. GES was normal, but will start reglan anyway given his sx. ROV 4 weeks. 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 Mother No problems noted. Social History Patient Tobacco Use Status: Current everyday Tobacco user Tobacco use type: Cigarette Cigarette Packs Per Day: 0.5 Cigarettes Per Day: 10.0 Second Hand Smoke Exposure: Yes Review of Systems Const Reports fatigue, Denies fever(s), Denies night sweats, Reports poor appetite and Reports weight loss Eyes Details: glasses Reports requires corrective lenses ENT Reports Normal hearing present, Denies dental pain, Denies dysphagia, Denies hearing loss, Denies mouth pain, Denies odynophagia, Denies throat swelling, Denies tongue swelling and Reports other (Dentition adequate) Card Reports no additional complaints Resp Reports no additional complaints GI Denies abdominal pain, Denies melena, Denies bloating, Denies hematochezia, Denies constipation, Denies GI cramping, Denies dysphagia, Denies excessive flatus, Reports early satiety, Denies heartburn, Denies diarrhea, Reports nausea, Denies odynophagia, Denies vomiting and Denies hematemesis Details: Polyuria Skin/Breast Denies pruritus, Denies lesions, Denies rash and Denies jaundice Neuro Reports Normal hearing present and Denies Abnormal speech present Endo Reports fatigue Aller/Immun Denies throat swelling and Denies tongue swelling Physical Exam Vital Signs: Last Vital Signs Pulse 88 10/26/22 14:25 BP 141/81 H 10/26/22 14:25 BMI result Body Mass Index 24.0 Const General: cooperative, no acute distress, well developed and well groomed Nutritional Appearance: average body habitus and well nourished Orientation/consciousness: oriented to person, oriented to place and oriented to time Limitations: No language barrier HEENT Head: Yes normocephalic and Yes atraumatic Eyes General: appearance normal, both eyes and all related structures Pupils: Equal, round and reactive pupils present Neck Neck: Yes normal visual inspection and Yes no lymphadenopathy Thyroid: Thyroid normal Resp Effort & Inspection: normal respiratory effort and able to speak in complete sentences Auscultation: clear to auscultation bilaterally Cardio Rate: regular rate Rhythm: regular rhythm Heart sounds: Normal, physiologic split S2 sound present Peripheral pulses: radial pulses present and posterior tibial pulses present GI Inspection: No distended and No Abdominal panniculus present Palpation (GI): Soft to palpation, nontender, no guarding, not rigid and No hepatosplenomegaly present Percussion: Yes normal to percussion Auscultation: normal bowel sounds Rectal Exam - Male: Yes deferred Skin General skin exam: no rashes or lesions noted, turgor normal, skin not dry, no jaundice, No spider nevi and no striae Rashes: no rashes Nails: normal Neuro General: oriented to person, oriented to place and oriented to time Cranial nerves: Yes Equal, round and reactive pupils present and Yes Normal hearing present Speech: No Abnormal speech present Extrem General: Yes normal to inspection, No clubbing, No cyanosis and No edema Psych Appearance: grossly normal and well kempt Mental Status: mental status grossly normal Speech and movement: Normal speech and movement present Affect: normal affect Attitude: cooperative Thought process: Normal thought process present and not confabulating Thought content: Normal thought content present Insight: Limited insight present (Psych) Judgement: Limited judgement present (Psych) Results Reviewed Results Reviewed: Laboratory Tests 10/05/22 10/05/22 13:34 13:34 C-Reactive Protein 0.10 Amylase 82 Lipase 54 TSH 4.30 H Free T4 0.71 Tiss Transglutamin IgG <1.0 Tiss Transglutamin IgA <1.0 Anti-Gliadin IgG Ab <1.0 Gliadin (Deamidat) IgA 4.0 Collection Date: 10/05/22 Collection Time: 1335 Source: Urine, Clean Catch Test Result Flag Reference Site Ur Color Yellow Ur Appear Clear PH 6.0 5.0-9.0 Ur Glu >=1000 H Negative mg/dL Urine Blood Negative Negative Spec [place] Ur 1.025 1.005-1.025 Urine Protein Negative Neg-Trace mg/dL Urine Ketones Negative Negative mg/dL Ur Nitrite Negative Negative Ur Pro Esterase Negative Negative Ur RBC 0-2 0-2 /HPF Ur WBC 0-5 0-5 /HPF Ur Squam Epi 0-2 0-2 /HPF Ur Bact None Seen None Seen Ur Hyaline Work Environment Safety Inspector 0-2 0-2 /LPF RAST PANEL SHOWS NO SIGNIFICANT FOOD ALLERGIES PANCREATIC A LAST TASTE STUDY WAS NOT OBTAINED. ULTRASOUND OF THE ABDOMEN 10/23/22 FINDINGS: PANCREAS: Normal. ABDOMINAL AORTA: Aneurysmal dilatation of the abdominal aorta to 3.3 x 1.3 cm distally. Atherosclerosis of the abdominal aorta. INFERIOR VENA CAVA: Visualized portions are normal. LIVER: The liver is normal in size. The liver contour is normal. Parenchymal echogenicity is normal. No focal hepatic lesion. There is no intrahepatic biliary duct dilatation seen. Portal vein is mildly dilated to 1.6 cm. GALLBLADDER: Normal. The gallbladder is physiologically distended without evidence of stones, sludge, polyps, wall thickening or pericholecystic fluid. COMMON BILE DUCT: Normal in caliber measuring 0.3 cm in diameter. RIGHT KIDNEY: No hydronephrosis or renal calculi. The kidney measures 9.9 cm in maximum dimension. Subcentimeter benign-appearing renal cyst, no follow-up imaging recommended. LEFT KIDNEY: Normal. No hydronephrosis. No renal calculi or focal parenchymal lesions. The kidney measures 10.3 cm in maximum dimension. SPLEEN: Normal. The spleen measures 12.4 cm in maximum dimension. FREE FLUID: None. US/US abdomen complete IMPRESSION: Aneurysmal dilatation of the abdominal aorta to 3.3 cm distally. Recommend followup every 3 years. Reference: J Am Cindy Radiol 2013; 10 (10): 789-794. ? Portal vein is mildly dilated to 1.6 cm, which could be seen in the setting of portal venous hypertension in the appropriate clinical setting. ? The report will be called to the ordering clinician by a [facility] Physician Composition Tile Layer. ? GASTRIC EMPTYING STUDY 10/17/22 IMPRESSION: Normal 4-hour solid food gastric emptying study. Assessment & Plan Assessment & Plan (1) Poorly controlled diabetes mellitus: Code(s): E11.65 - Type 2 diabetes mellitus with hyperglycemia Plan: EGD BIOPSY TODAY'S VISIT HE HAS SIGNIFICANT GLUCOSURIA WHICH MAKES ME WONDER IF HE IS ON. A G LP 1 INHIBITOR. He is NOT! I will start him on metformin 500mg bid and progress as tolerated and he sill continue his glipizide. I will refer to endocrinology going forward. It seems clear to me that his weight loss and probably his her or related to poorly controlled diabetes as evidenced by the glucosuria and the profound weight loss. I think that the most important factor will be getting blood sugar to a place res actually metabolized thing some energy and not losing all through the urine. With this in mind if he can get in see endocrinology in does not tolerate metformin I may consider putting him on Lantus insulin or even Ozempic. I am quite surprised in stated age that his primary care provider had him on a very old diabetic insulin mimetic, glipizide, which has a very poor track record of diabetes control and all cause mortality. We go over all the rest of the labs any does not seem to have any significant food allergies or concern for inflammatory bowel disease. His thyroid seems to be struggling as his TSH is borderline high but I will reserve judgment on this until we have a chance to repeat the lab at a later date.. The ultrasound did not show any trouble with the gallbladder and he is aware of his aortic aneurysm which is monitored by his primary care provider. Also starting reglan 5mg qidachs as he most likely has gastroparesis. GES was normal, but will start reglan anyway given his sx. ROV 4 weeks. (2) Glucosuria: Code(s): R81 - Glycosuria (3) Weight loss: Code(s): R63.4 - Abnormal weight loss (4) Early satiety: Code(s): R68.81 - Early satiety (5) AAA (abdominal aortic aneurysm): Code(s): I71.40 - Abdominal aortic aneurysm, without rupture, unspecified (6) Diarrhea: Comment: some mixed Code(s): R19.7 - Diarrhea, unspecified (7) Upper abdominal pain: Comment: bloating/gas Code(s): R10.10 - Upper abdominal pain, unspecified Orders: Referrals Endocrinology Referral E11.65 - Type 2 diabetes mellitus with hyperglycemia, R63.4 - Abnormal weight loss Medications: New metformin 500 mg PO BID 60 tabs 3RF E11.9 - Type 2 diabetes mellitus without complications metoclopramide HCl (Reglan) 5 mg PO QIDACHS 120 tabs 4RF E11.65 - Type 2 diabetes mellitus with hyperglycemia Coding Level of Care Code Est Pt Level 4 (25747) Diagnoses Poorly controlled diabetes mellitus E11.65 Glucosuria R81 Weight loss R63.4 Early satiety R68.81 AAA (abdominal aortic aneurysm) I71.40 Diarrhea R19.7 Upper abdominal pain R10.10
== END 2022-10-26 15:28 | disposition home or self-care (01) ==
PROVIDERS: PCP Internal Medicine; Visit Provider Nurse Practitioner
DX: E11.65 Type 2 diabetes mellitus with hyperglycemia (principal); R81 Glycosuria; R63.4 Abnormal weight loss; R68.81 Early satiety; I71.40 Abdominal aortic aneurysm, without rupture, unspecified; R19.7 Diarrhea, unspecified; R10.10 Upper abdominal pain, unspecified
CPT/HCPCS: 99214

== ENCOUNTER → 2022-10-26 14:17 | Outpatient (BNVA) | payer MEDICARE, SELFPAY | PROVIDERS: PCP Internal Medicine; Visit Provider Nurse Practitioner | DX: E11.65 Type 2 diabetes mellitus with hyperglycemia (principal); R10.10 Upper abdominal pain, unspecified; R81 Glycosuria; R63.4 Abnormal weight loss; R68.81 Early satiety; I71.40 Abdominal aortic aneurysm, without rupture, unspecified; R19.7 Diarrhea, unspecified | CPT/HCPCS: 99212 ==

== ENCOUNTER 2022-11-23 13:46 | Outpatient (AMB) | payer MEDICARE, SELFPAY ==
[2022-11-23 13:55] VITALS: BP 157/80; PULSE 98; BMI 24.3
--- NOTE | 2022-11-23 13:55 | MHC.OFFVIS ---
Intake Vital Signs 11/23/22 13:55 Height 5 ft 9 in Weight 164 lb 14.492 oz BMI 24.3 BP 157/80 H Blood Pressure Location Lt brachial Position Sitting Pulse 98 Intake Visit Reasons: 4 week follow up Intake Note: Wellington presents in office today in 4 weeks follow up for abdominal pain. CC: Patient reports doing better from abdominal pain and having more appetite. Denies having any new GI concerns today. 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 A G LP 1 INHIBITOR. He is NOT! I will start him on metformin 500mg bid and progress as tolerated and he sill continue his glipizide. I will refer to endocrinology going forward. It seems clear to me that his weight loss and probably his her or related to poorly controlled diabetes as evidenced by the glucosuria and the profound weight loss. I think that the most important factor will be getting blood sugar to a place res actually metabolized thing some energy and not losing all through the urine. With this in mind if he can get in see endocrinology in does not tolerate metformin I may consider putting him on Lantus insulin or even Ozempic. I am quite surprised in stated age that his primary care provider had him on a very old diabetic insulin mimetic, glipizide, which has a very poor track record of diabetes control and all cause mortality. We go over all the rest of the labs any does not seem to have any significant food allergies or concern for inflammatory bowel disease. His thyroid seems to be struggling as his TSH is borderline high but I will reserve judgment on this until we have a chance to repeat the lab at a later date.. The ultrasound did not show any trouble with the gallbladder and he is aware of his aortic aneurysm which is monitored by his primary care provider. Also starting reglan 5mg qidachs as he most likely has gastroparesis. GES was normal, but will start reglan anyway given his sx. ROV 4 weeks. (2) Glucosuria: Code(s): R81 - Glycosuria (3) Weight loss: Code(s): R63.4 - Abnormal weight loss (4) Early satiety: Code(s): R68.81 - Early satiety (5) AAA (abdominal aortic aneurysm): Code(s): I71.40 - Abdominal aortic aneurysm, without rupture, unspecified (6) Diarrhea: Comment: some mixed Code(s): R19.7 - Diarrhea, unspecified (7) Upper abdominal pain: Comment: bloating/gas Code(s): R10.10 - Upper abdominal pain, unspecified Orders: Referrals Endocrinology Refe rral E11.65 - Type 2 di abetes mellitus wi th hyperglycemia, R63.4 - Abnormal w eight loss Medications: New metformin 500 mg PO BID 60 tabs 3RF E11.9 - Type 2 jose betes mellitus wit hout complications metoclopramide HCl (Reglan) 5 mg PO QIDACHS 1 20 tabs 4RF E11.65 - Type 2 di abetes mellitus wi th hyperglycemia EGD BIOPSY TODAY'S VISIT HE is feeling much better! He has gained 2 lbs and has a better appetite. He also has more energy - he is quite happy with this. He has the EGD upcoming next week. . Again his improvement seems to be related to starting him on metformin to improve his glucose control. Hopefully he will get in with endocrinology sometime in the near future since he has trouble communicating with his primary get them to appropriately manage his diabetes. I will get fasting chem profile, repeat UA, repeat TSH. Keep appointment in December. [facility] Medical History History of COVID-19 Smoker Chronic knee pain PTSD (post-traumatic stress disorder) Lumbar herniated disc CKD (chronic kidney disease), stage III Elevated cholesterol GERD (gastroesophageal reflux disease) Hyperlipidemia Erectile dysfunction Combined arterial insufficiency and corporo-venous occlusive erectile dysfunction Peyronie's disease Surgical History History of arthroscopy of right knee Hx of colonoscopy History of surgery H/O shoulder surgery Family History Father No problems noted. Mother No problems noted. Social History Patient Tobacco Use Status: Current everyday Tobacco user Tobacco use type: Cigarette Cigarette Packs Per Day: 0.5 Cigarettes Per Day: 10 Second Hand Smoke Exposure: Yes Review of Systems Const Denies fatigue, Denies fever(s), Denies night sweats, Denies poor appetite, Reports weight gain and Denies weight loss ENT Reports Normal hearing present, Denies dental pain, Denies dysphagia, Denies hearing loss, Denies mouth pain, Denies odynophagia, Denies throat swelling, Denies tongue swelling and Reports other (Dentition adequate) Card Reports no additional complaints Resp Reports no additional complaints GI Denies abdominal pain, Denies melena, Denies bloating, Denies hematochezia, Denies constipation, Denies GI cramping, Denies dysphagia, Denies excessive flatus, Denies early satiety, Reports heartburn, Denies diarrhea, Denies nausea, Denies odynophagia, Denies vomiting and Denies hematemesis Skin/Breast Denies pruritus, Denies lesions, Denies rash and Denies jaundice Neuro Reports Normal hearing present and Denies Abnormal speech present Endo Denies fatigue Aller/Immun Denies throat swelling and Denies tongue swelling Physical Exam Vital Signs: Last Vital Signs Pulse 98 11/23/22 13:55 BP 157/80 H 11/23/22 13:55 BMI result Body Mass Index 24.3 Const General: cooperative, no acute distress, well developed and well groomed Nutritional Appearance: average body habitus and well nourished Orientation/consciousness: oriented to person, oriented to place and oriented to time Limitations: No language barrier HEENT Head: Yes normocephalic and Yes atraumatic Eyes General: appearance normal, both eyes and all related structures Pupils: Equal, round and reactive pupils present Neck Neck: Yes normal visual inspection and Yes no lymphadenopathy Thyroid: Thyroid normal Resp Effort & Inspection: normal respiratory effort and able to speak in complete sentences Auscultation: clear to auscultation bilaterally Cardio Rate: regular rate Rhythm: regular rhythm Heart sounds: Normal, physiologic split S2 sound present Peripheral pulses: radial pulses present and posterior tibial pulses present GI Inspection: No distended and No Abdominal panniculus present Palpation (GI): Soft to palpation, nontender, no guarding, not rigid and No hepatosplenomegaly present Percussion: Yes normal to percussion Auscultation: normal bowel sounds Rectal Exam - Male: Yes deferred Skin General skin exam: no rashes or lesions noted, turgor normal, skin not dry, no jaundice, No spider nevi and no striae Rashes: no rashes Nails: normal Neuro General: oriented to person, oriented to place and oriented to time Cranial nerves: Yes Equal, round and reactive pupils present and Yes Normal hearing present Speech: No Abnormal speech present Extrem General: Yes normal to inspection, No clubbing, No cyanosis and No edema Psych Appearance: grossly normal and well kempt Mental Status: mental status grossly normal Speech and movement: Normal speech and movement present Affect: normal affect Attitude: cooperative Thought process: Normal thought process present and not confabulating Thought content: Normal thought content present Insight: Limited insight present (Psych) Judgement: Limited judgement present (Psych) Assessment & Plan Assessment & Plan (1) Poorly controlled diabetes mellitus: Code(s): E11.65 - Type 2 diabetes mellitus with hyperglycemia Plan: EGD BIOPSY TODAY'S VISIT HE is feeling much better! He has gained 2 lbs and has a better appetite. He also has more energy - he is quite happy with this. He has the EGD upcoming next week. . Again his improvement seems to be related to starting him on metformin to improve his glucose control. Hopefully he will get in with endocrinology sometime in the near future since he has trouble communicating with his primary get them to appropriately manage his diabetes. I will get fasting chem profile, repeat UA, repeat TSH. Keep appointment in December. (2) Glucosuria: Code(s): R81 - Glycosuria (3) Upper abdominal pain: Comment: bloating/gas Code(s): R10.10 - Upper abdominal pain, unspecified (4) Early satiety: Code(s): R68.81 - Early satiety (5) Weight loss: Code(s): R63.4 - Abnormal weight loss (6) Elevated TSH: Code(s): R79.89 - Other specified abnormal findings of blood chemistry Orders: Orders Comprehensive Met. Panel 11/23/22 E11.65 - Type 2 diabetes mellitus with hyperglycemia, R81 - Glycosuria, R79.89 - Other specified abnormal findings of blood chemistry TSH reflex Free T4 11/23/22 E11.65 - Type 2 diabetes mellitus with hyperglycemia, R81 - Glycosuria, R79.89 - Other specified abnormal findings of blood chemistry UA CC w/rflx Micro + Cult 11/23/22 E11.65 - Type 2 diabetes mellitus with hyperglycemia, R81 - Glycosuria, R79.89 - Other specified abnormal findings of blood chemistry Coding Level of Care Code Est Pt Level 3 (60481) Diagnoses Poorly controlled diabetes mellitus E11.65 Glucosuria R81 Upper abdominal pain R10.10 Early satiety R68.81 Weight loss R63.4 Elevated TSH R79.89
== END 2022-11-23 15:32 | disposition home or self-care (01) ==
PROVIDERS: PCP Internal Medicine; Visit Provider Nurse Practitioner
DX: E11.65 Type 2 diabetes mellitus with hyperglycemia (principal); R81 Glycosuria; R10.10 Upper abdominal pain, unspecified; R68.81 Early satiety; R63.4 Abnormal weight loss; R79.89 Other specified abnormal findings of blood chemistry
CPT/HCPCS: 99213

== ENCOUNTER → 2022-11-23 13:46 | Outpatient (BNVA) | payer MEDICARE, SELFPAY | PROVIDERS: PCP Internal Medicine; Visit Provider Nurse Practitioner | DX: R81 Glycosuria (principal); E11.65 Type 2 diabetes mellitus with hyperglycemia; R10.10 Upper abdominal pain, unspecified; R68.81 Early satiety; R63.4 Abnormal weight loss; R94.6 Abnormal results of thyroid function studies | CPT/HCPCS: 99212 ==

== ENCOUNTER 2022-11-30 11:19 | Day surgery (SDC) | payer MEDICARE, SELFPAY ==
[2022-11-28 16:40] VITALS: BMI 24.4
--- NOTE | 2022-11-29 12:10 | P.CONAN_ITS ---
Documented by User: Emma Iraheta NP 11/29/22 12:13 HPI - Anesthesia Eval Consult details Narrative: 67yo M for Upper Endoscopy PMFSH Active Problems Active Problems: All Active Problems (Updated 11/23/22 @ 14:32 by HEIDI Potts) Elevated TSH (Acute) Poorly controlled diabetes mellitus (Acute) Glucosuria (Acute) Portal hypertension (Acute) Upper abdominal pain (Acute) Early satiety (Acute) Weight loss (Acute) Diarrhea (Acute) AAA (abdominal aortic aneurysm) (Acute) Erectile dysfunction due to arterial insufficiency (Acute) BPH w urinary obs/LUTS (Acute) Diabetes (Acute) Phimosis of penis (Acute) Peyronie's disease (Acute) Past Medical History Medical History History of COVID-19 Smoker Chronic knee pain PTSD (post-traumatic stress disorder) Lumbar herniated disc CKD (chronic kidney disease), stage III Elevated cholesterol GERD (gastroesophageal reflux disease) Hyperlipidemia Erectile dysfunction Combined arterial insufficiency and corporo-venous occlusive erectile dysfunction Peyronie's disease Family History Family History Father No problems noted. Mother No problems noted. Family history of problems with anesthesia: No Surgical History Surgical History History of arthroscopy of right knee Hx of colonoscopy History of surgery H/O shoulder surgery History of Problems with Anesthesia: No Social History Social History Patient Tobacco Use Status: Current everyday Tobacco user Tobacco use type: Cigarette Cigarette Packs Per Day: 0.5 Cigarettes Per Day: 10 Second Hand Smoke Exposure: Yes Meds Allergies Allergy/AdvReac Type Severity Reaction Status Date / Time acetaminophen AdvReac Mild Stomach Verified 10/26/22 14:28 Upset Home Medications Medication Instructions Recorded Confirmed Last Taken Type amitriptyline 25 mg tablet 25 mg PO BEDTIME 12/13/19 01/23/22 10/23/21 History atorvastatin 40 mg tablet 40 mg PO DAILY 12/13/19 01/23/22 10/23/21 History lisinopril 2.5 mg tablet 2.5 mg PO DAILY 12/13/19 01/23/22 10/23/21 History omeprazole 20 mg capsule,delayed 20 mg PO DAILY 12/13/19 01/23/22 10/24/21 History release cholecalciferol (vitamin D3) 25 25 mcg PO DAILY 03/23/21 01/23/22 10/23/21 History mcg (1,000 unit) capsule ferrous gluconate 324 mg (38 mg 324 mg PO BEDTIME 03/23/21 01/30/22 10/23/21 History iron) tablet hydrocortisone 2.5 % topical cream 1 appl topical DAILY PRN 03/23/21 01/30/22 10/23/21 History hemmorhoids blood sugar diagnostic (OneTouch #10 ea 09/07/21 10/23/21 History Verio test strips) lancets 33 gauge (OneTouch Delica #100 ea 09/07/21 10/23/21 History Plus Lancet) trazodone 50 mg tablet 50 mg PO BEDTIME 09/07/21 01/23/22 10/23/21 History glipizide 10 mg tablet 10 mg PO BID 12/12/21 01/23/22 Unknown History Exam Exam Date and Time: November 29, 2022 1210 Height,Weight and Vital Signs: Height 5 ft 9 in Weight 74.843 kg Narrative Narrative: US abdomen complete 10/2022 IMPRESSION: Aneurysmal dilatation of the abdominal aorta to 3.3 cm distally. Recommend followup every 3 years. Reference: J Am Cindy Radiol 2013; 10 (10): 789-794. Portal vein is mildly dilated to 1.6 cm, which could be seen in the setting of portal venous hypertension in the appropriate clinical setting. 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 Stable [facility] Past Medical History Medical History History of COVID-19 Smoker Chronic knee pain PTSD (post-traumatic stress disorder) Lumbar herniated disc CKD (chronic kidney disease), stage III Elevated cholesterol GERD (gastroesophageal reflux disease) Hyperlipidemia Erectile dysfunction Combined arterial insufficiency and corporo-venous occlusive erectile dysfunction Peyronie's disease Functional capacity: independent ambulation Family History Family History Father No problems noted. Mother No problems noted. Surgical History Surgical History History of arthroscopy of right knee Hx of colonoscopy History of surgery H/O shoulder surgery Social History Social History Patient Tobacco Use Status: Current everyday Tobacco user Tobacco use type: Cigarette Cigarette Packs Per Day: 0.5 Cigarettes Per Day: 10 Second Hand Smoke Exposure: Yes Meds Allergies Allergy/AdvReac Type Severity Reaction Status Date / Time acetaminophen AdvReac Mild Stomach Verified 10/26/22 14:28 Upset Home Medications Medication Instructions Recorded Confirmed Last Taken Type amitriptyline 25 mg tablet 25 mg PO BEDTIME 12/13/19 01/23/22 10/23/21 History atorvastatin 40 mg tablet 40 mg PO DAILY 12/13/19 01/23/22 10/23/21 History lisinopril 2.5 mg tablet 2.5 mg PO DAILY 12/13/19 01/23/22 10/23/21 History omeprazole 20 mg capsule,delayed 20 mg PO DAILY 12/13/19 01/23/22 10/24/21 History release cholecalciferol (vitamin D3) 25 25 mcg PO DAILY 03/23/21 01/23/22 10/23/21 History mcg (1,000 unit) capsule ferrous gluconate 324 mg (38 mg 324 mg PO BEDTIME 03/23/21 01/30/22 10/23/21 History iron) tablet hydrocortisone 2.5 % topical cream 1 appl topical DAILY PRN 01/03/0201/30/22 10/23/21 History hemmorhoids blood sugar diagnostic (OneTouch #10 ea 09/07/21 10/23/21 History Verio test strips) lancets 33 gauge ([employer] PizzaTouch Delica #100 ea 09/07/21 10/23/21 History Plus Lancet) trazodone 50 mg tablet 50 mg PO BEDTIME 09/07/21 01/23/22 10/23/21 History glipizide 10 mg tablet 10 mg PO BID 12/12/21 01/23/22 Unknown History Exam Airway Mallampati Class: III Neck ROM: Full Denture: Upper Loose/Missing/Broken Teeth: Yes Assessment and Plan Assessment Anesthesia Assessment: Anesthesia Plan Discussed Final Anesthetic Review NPO: Yes ASA Class: III Final Preanesthetic Review: Meds/Allgs Chart Reviewed, Consent Obtained/Reviewed and Anes Risks/Benef Reviewed Patient Risk: Intermediate Procedure Risk: Intermediate Anesthetic Plan Anesthetic Plan: MAC: and Agree w/ Assess. and Plan Disposition: Standard PACU
[2022-11-30 12:31] LABS: Glucose, Whole Blood 149 mg/dL (60-115)
[2022-11-30 12:38] VITALS: BP 164/78; PULSE 71; RESP 16; TEMP 36.3; O2SAT 99; BMI 25.5
--- NOTE | 2022-11-30 14:46 | MHC.SHP ---
Pre-Procedural Eval Section A Date of Service: 11/30/22 Section B Chief Complaint: Abnormal weight loss, Early satiety Relevant Family History (Specify if Yes): No Relevant Social History: Tobacco Use Present Medications: see Short Stay Collaborative assessment Medical History: Significant History (History of COVID-19 Smoker Chronic knee pain PTSD (post-traumatic stress disorder) Lumbar herniated disc CKD (chronic kidney disease), stage III Elevated cholesterol GERD (gastroesophageal reflux disease) Hyperlipidemia Erectile dysfunction Combined arterial insufficiency and corporo-venous occlusiv) History of Previous Operations: Relevant previous surgery/procedure and date(s) (History of arthroscopy of right knee Hx of colonoscopy History of surgery H/O shoulder surgery) Allergies: Allergies Allergy/AdvReac Type Severity Reaction Status Date / Time acetaminophen AdvReac Mild Stomach Verified 10/26/22 14:28 Upset Review of Systems Sugical H&P ROS: Negative: Constitution, Cardiovascular, Respiratory, Neurological, Psychiatric, Hem-Onc, Allergic/Immunologic, Gastrointestinal, Genitourinary, Musculoskeletal, Integumentary, Endocrine and Eyes/Ears/Nose/Throat Exam Surgical H&P Exam: Normal: HEENT, Normal: Heart, Normal: Lungs, Normal: Extremities, Normal: Abdomen, Normal: Skin and Normal: Neurological Plan Diagnosis/Plan: Unchanged I have reviewed the history and physical and performed a pertinent physical examination on my patient. No changes have occurred unless specified. Time Spent With Patient Time: Total time managing care of this patient today ____ minutes.
--- NOTE | 2022-11-30 15:00 | W.PM.OPN ---
Operative Note Operative Note Date of Service: 11/30/22 Narrative: Procedure Description: EGD Indication: satiety, weight loss Anesthesia: MAC FLEXIBLE TRANSORAL UPPER GASTROINTESTINAL ENDOSCOPY UPPER ENDOSCOPY Consent: Indications for the procedure and potential complications of bleeding, perforation, reaction to medications and missed diagnosis were discussed with the patient and informed consent was obtained. Instrument: Olympus GIF H 190 J mid size upper endoscope Monitoring: Vital signs and clinical assessment, continuous EKG monitoring, Pulse oximetry, Carbon Dioxide monitoring and blood pressure monitoring were done throughout the procedure. Procedure: The patient was placed in the left lateral decubitis position and pre-procedure medications were administered and a bite block was placed. The endoscope was inserted into the mouth and advanced under direct vision to the third part of duodenum. A careful inspection was made as the upper endoscope was withdrawn including a retroflexed examination of the proximal stomach; Findings and interventions are described below. Findings: Larynx:normal Esophagus: GE junction at 47 cm, diaphragm hiatus at 47 cm, irregular Z line, possible Pretty,s bx taken Stomach: Patchy gastric erythema. Biopsies were obtained. Grade 3 flap valve on retroflexed examination of the cardia with v lax LES. The pyloric outlet was very tight dilated to 20 mm with ballon, no tears noted. Minimal gastric movement seen Duodenum: Normal bulb and descending duodenum, Intervention: Biopsies as noted above, balloon dilation Impression/Findings: tight pyloric outlet lax LES irregular z line gastritis possible gastroparesis PLAN: f/u bx results cont with reglan as helping, avoid greasy foods if balloon dilation helped can do again prn
[2022-11-30 15:15] VITALS: BP 128/72; PULSE 81; RESP 15; TEMP 36.6; O2SAT 98
[2022-11-30 15:30] VITALS: BP 165/83; PULSE 78; RESP 18; TEMP 37; O2SAT 99
== END 2022-11-30 15:48 | disposition home or self-care (01) ==
PROVIDERS: PCP Internal Medicine; Visit Provider Internal Medicine Gastroenterology
PROC: 0DJ08ZZ Inspection of Upper Intestinal Tract, Via Natural or Artificial Opening Endoscopic (ICD-10-PCS; CPT 43235; principal; 2022-11-30 13:20)
DX: R63.4 Abnormal weight loss (principal); Z68.24 Body mass index [BMI] 24.0-24.9, adult; R68.81 Early satiety; K31.1 Adult hypertrophic pyloric stenosis; K22.4 Dyskinesia of esophagus; K22.89 Other specified disease of esophagus; K29.70 Gastritis, unspecified, without bleeding; K22.70 Barrett's esophagus without dysplasia; E11.65 Type 2 diabetes mellitus with hyperglycemia; R81 Glycosuria; E11.22 Type 2 diabetes mellitus with diabetic chronic kidney disease; N18.30 Chronic kidney disease, stage 3 unspecified; Z79.84 Long term (current) use of oral hypoglycemic drugs; K44.9 Diaphragmatic hernia without obstruction or gangrene; E78.5 Hyperlipidemia, unspecified; I71.40 Abdominal aortic aneurysm, without rupture, unspecified; R19.7 Diarrhea, unspecified; R10.10 Upper abdominal pain, unspecified; F17.210 Nicotine dependence, cigarettes, uncomplicated; N48.6 Induration penis plastica; R79.89 Other specified abnormal findings of blood chemistry; Z79.899 Other long term (current) drug therapy; Z86.16 Personal history of COVID-19; Z98.890 Other specified postprocedural states; Z88.8 Allergy status to other drugs, medicaments and biological substances
CPT/HCPCS: 43245; 43239; 82947; 88305; 88342; C1726; J3010

== ENCOUNTER → 2022-11-30 11:19 | Outpatient (BNV) | payer MEDICARE, SELFPAY | PROVIDERS: PCP Internal Medicine; Visit Provider Internal Medicine Gastroenterology | DX: R68.81 Early satiety (principal); R63.4 Abnormal weight loss; K22.70 Barrett's esophagus without dysplasia; K31.84 Gastroparesis; K31.1 Adult hypertrophic pyloric stenosis | CPT/HCPCS: 43249 ==

== ENCOUNTER 2023-01-03 15:13 | Outpatient (REF) | payer MEDICARE, SELFPAY ==
[2023-01-03 17:25] LABS: Appearance Urine Clear; Color Urine Yellow; Glucose Urine UA Negative (Negative); Leukocyte Esterase Urine Negative (Negative); Nitrite Urine Negative (Negative); Urine Blood Negative (Negative); Urine Ketones Negative (Negative); Urine Protein Negative (Neg-Trace)
[2023-01-03 17:45] LABS: Alanine Aminotransferase 9 U/L (0-40); Albumin Level 4.6 g/dL (3.5-5.0); Alkaline Phosphatase 43 U/L (39-117); Anion Gap 13 (12-20); Aspartate Amino Transferase 12 U/L (5-37); Bilirubin Total 0.3 mg/dL (0.0-1.0); Blood Urea Nitrogen 19 mg/dL (9-16); Calcium 9.9 mg/dL (8.4-10.2); Carbon Dioxide 26 mmol/L (22-29); Chloride 106 mmol/L (96-108); Estimated Glomerular Filt Rate > 60; Glucose Random 98 mg/dL (60-115); Potassium 4.1 mmol/L (3.3-5.1); Sodium 141 mmol/L (135-145); Total Protein 7.4 g/dL (6.5-8.0)
[2023-01-03 18:00] LABS: TSH reflex Free T4 3.48 uIU/mL (0.32-4.0)
== END 2023-01-03 15:14 | disposition home or self-care (01) ==
LOC: HO.LAB 15:13
PROVIDERS: PCP Internal Medicine; Visit Provider Nurse Practitioner
DX: A04.8 Other specified bacterial intestinal infections (principal); E11.65 Type 2 diabetes mellitus with hyperglycemia; R81 Glycosuria; R79.89 Other specified abnormal findings of blood chemistry; R63.4 Abnormal weight loss; K29.60 Other gastritis without bleeding; Z98.890 Other specified postprocedural states
CPT/HCPCS: 36415; 80053; 81003; 84443; 99212

== ENCOUNTER 2023-01-03 15:13 | Outpatient (AMB) | payer MEDICARE, SELFPAY ==
--- NOTE | 2023-01-03 15:19 | MHC.OFFVIS ---
Intake Vital Signs 01/03/23 15:22 Height 5 ft 9 in Weight 163 lb 2.273 oz BMI 24.1 BP 138/87 Blood Pressure Location Rt brachial Position Sitting Intake Visit Reasons: s/p colo/ H pylori Intake Note: [place] presents in office today in follow up of colonoscopy. CC: Patient underwent colonoscopy on 11/30/22. He reports concerns about weight loss. Denies other GI symptom today. Chinese Instructor Required: No Accompanied by: Spouse Allergies acetaminophen Adverse Reaction (Mild, Verified 10/26/22 14:28) Stomach Upset HPI s/p colo/ H pylori HPI Details Assessment & Plan (1) Poorly controlled diabetes mellitus: Code(s): E11.65 - Type 2 diabetes mellitus with hyperglycemia Plan: HE is feeling much better! He has gained 2 lbs and has a better appetite. He also has more energy - he is quite happy with this. He has the EGD upcoming next week. . Again his improvement seems to be related to starting him on metformin to improve his glucose control. Hopefully he will get in with endocrinology sometime in the near future since he has trouble communicating with his primary get them to appropriately manage his diabetes. I will get fasting chem profile, repeat UA, repeat TSH. Keep appointment in December. (2) Glucosuria: Code(s): R81 - Glycosuria (3) Upper abdominal pain: Comment: bloating/gas Code(s): R10.10 - Upper abdominal pain, unspecified (4) Early satiety: Code(s): R68.81 - Early satiety (5) Weight loss: Code(s): R63.4 - Abnormal weight loss (6) Elevated TSH: Code(s): R79.89 - Other specified abnormal findings of blood chemistry Orders: Orders Comprehensive Met. Panel 11/23/22 - Type 2 di abetes mellitus wi th hyperglycemia, R81 - Glycosuria, R79.89 - Other spe cified abnormal fi ndings of blood ch emistry TSH reflex Free T4 11/23/22 - Type 2 di abetes mellitus wi th hyperglycemia, R81 - Glycosuria, R79.89 - Other spe cified abnormal fi ndings of blood ch emistry UA CC w/rflx Micro + Cult 11/23/22 - Type 2 di abetes mellitus wi th hyperglycemia, R81 - Glycosuria, R79.89 - Other spe cified abnormal fi ndings of blood ch emistry * LABS: Not obtained 10/05/22 Collection Sina e: 1335 Source: Urin e, Clean Catch Test Result Flag Refere nce Si te Ur Color Yellow Ur Appear C lear P H 6. 0 5.0-9.0 Ur Glu >=100 0 H Negative mg/d L Urine Blood Negative Negative Spec Gr avity Ur 1.025 1.005-1.025 Urine Pro tein Negative N eg-Trace mg/dL Urine [place] es Negative Neg ative mg/dL Ur Nitrite Negative Negat germán Ur Pro Esterase Negative Negativ e Ur RBC 0-2 0-2 /HPF U r WBC 0- 5 0-5 /HPF Ur Squam Epi 0-2 0-2 /HPF Ur Ba ct None Seen None Seen Ur Hyal ine Potato Chip Sacking Machine Operator 0-2 0-2 /LPF THE RAST PANEL DOES NOT SHOW ANY SIGNIFICANT FOOD ALLERGIES EGD Findings: Larynx:normal Esophagus: GE junction at 47 cm, diaphragm hiatus at 47 cm, irregular Z line, possible Pretty,s bx taken Stomach: Patchy gastric erythema. Biopsies were obtained. Grade 3 flap valve on retroflexed examination of the cardia with v lax LES. The pyloric outlet was very tight dilated to 20 mm with ballon, no tears noted. Minimal gastric movement seen Duodenum: Normal bulb and descending duodenum, Intervention: Biopsies as noted above, balloon dilation Impression/Findings: tight pyloric outlet lax LES irregular z line gastritis possible gastroparesis PLAN: f/u bx results cont with reglan as helping, avoid greasy foods if balloon dilation helped can do again prn BIOPSY Received: 12/01/22 Diagnosis A. Stomach, biopsy: - Antral-type and oxyntic mucosa with moderate chronic active inflammation and intestinal metaplasia; negative for dysplasia. - Positive for H pylori. B. GE junction, biopsy: - Cardiofundic-type mucosa with moderate chronic, focally active, inflammation; no intestinal metaplasia seen. - Active esophagitis (rare eosinophils and neutrophils) TODAY'S VISIT He tolerated the procedure well. He has lost wt again! Need to get labs, eating ok, still has some appetite issues and nausea. Energy generally ok for his age. WE review the EGD and he is positive for HP. Will send quad therapy, No old problems perceived with metformin as this can sometimes cause nausea. Given the fact that there is no significant food allergies or other derangements I think the H pylori would be the driving problem. Other than this is only other complaint is knee pain. ROV 6 weeks. [facility] Medical History History of COVID-19 Smoker Chronic knee pain PTSD (post-traumatic stress disorder) Lumbar herniated disc CKD (chronic kidney disease), stage III Elevated cholesterol GERD (gastroesophageal reflux disease) Hyperlipidemia Erectile dysfunction Combined arterial insufficiency and corporo-venous occlusive erectile dysfunction Peyronie's disease Surgical History History of arthroscopy of right knee Hx of colonoscopy History of surgery H/O shoulder surgery Family History Father No problems noted. Mother No problems noted. Social History Patient Tobacco Use Status: Current everyday Tobacco user Tobacco use type: Cigarette Cigarette Packs Per Day: 0.5 Cigarettes Per Day: 10 Second Hand Smoke Exposure: Yes Review of Systems Const Denies fatigue, Denies fever(s), Denies night sweats, Reports poor appetite and Denies weight loss Eyes Details: glasses Reports requires corrective lenses ENT Reports Normal hearing present, Denies dental pain, Denies dysphagia, Denies hearing loss, Denies mouth pain, Denies odynophagia, Denies throat swelling, Denies tongue swelling and Reports other (Dentition adequate) Card Reports no additional complaints Resp Reports no additional complaints GI Denies abdominal pain, Denies melena, Denies bloating, Denies hematochezia, Denies constipation, Denies GI cramping, Denies dysphagia, Denies excessive flatus, Denies early satiety, Denies heartburn, Denies diarrhea, Reports nausea, Denies odynophagia, Denies vomiting and Denies hematemesis Musc Reports arthralgias Skin/Breast Denies pruritus, Denies lesions, Denies rash and Denies jaundice Neuro Reports Normal hearing present and Denies Abnormal speech present Endo Denies fatigue Aller/Immun Denies throat swelling and Denies tongue swelling Physical Exam Vital Signs: Last Vital Signs BP 138/87 01/03/23 15:22 BMI result Body Mass Index 24.1 Const General: cooperative, no acute distress, well developed and well groomed Nutritional Appearance: average body habitus and well nourished Orientation/consciousness: oriented to person, oriented to place and oriented to time Limitations: No language barrier HEENT Head: Yes normocephalic and Yes atraumatic Eyes General: appearance normal, both eyes and all related structures Pupils: Equal, round and reactive pupils present Neck Neck: Yes normal visual inspection and Yes no lymphadenopathy Thyroid: Thyroid normal Resp Effort & Inspection: normal respiratory effort and able to speak in complete sentences Auscultation: clear to auscultation bilaterally Cardio Rate: regular rate Rhythm: regular rhythm Heart sounds: Normal, physiologic split S2 sound present Peripheral pulses: radial pulses present and posterior tibial pulses present GI Inspection: No distended and No Abdominal panniculus present Palpation (GI): Soft to palpation, nontender, no guarding, not rigid and No hepatosplenomegaly present Percussion: Yes normal to percussion Auscultation: normal bowel sounds Rectal Exam - Male: Yes deferred Skin General skin exam: no rashes or lesions noted, turgor normal, skin not dry, no jaundice, No spider nevi and no striae Rashes: no rashes Nails: normal Neuro General: oriented to person, oriented to place and oriented to time Cranial nerves: Yes Equal, round and reactive pupils present and Yes Normal hearing present Speech: No Abnormal speech present Extrem General: Yes normal to inspection, No clubbing, No cyanosis and No edema Psych Appearance: grossly normal and well kempt Mental Status: mental status grossly normal Speech and movement: Normal speech and movement present Affect: normal affect Attitude: cooperative Thought process: Normal thought process present and not confabulating Thought content: Normal thought content present Insight: Limited insight present (Psych) Judgement: Limited judgement present (Psych) Results Reviewed Results Reviewed: 10/05/22 Collection Time: 1335 Source: Urine, Clean Catch Test Result Flag Reference Site Ur Color Yellow Ur Appear Clear PH 6.0 5.0-9.0 Ur Glu >=1000 H Negative mg/dL Urine Blood Negative Negative Spec [place] Ur 1.025 1.005-1.025 Urine Protein Negative Neg-Trace mg/dL Urine Ketones Negative Negative mg/dL Ur Nitrite Negative Negative Ur Pro Esterase Negative Negative Ur RBC 0-2 0-2 /HPF Ur WBC 0-5 0-5 /HPF Ur Squam Epi 0-2 0-2 /HPF Ur Bact None Seen None Seen Ur Hyaline Potato Chip Sacking Machine Operator 0-2 0-2 /LPF THE RAST PANEL DOES NOT SHOW ANY SIGNIFICANT FOOD ALLERGIES EGD Findings: Larynx:normal Esophagus: GE junction at 47 cm, diaphragm hiatus at 47 cm, irregular Z line, possible Pretty,s bx taken Stomach: Patchy gastric erythema. Biopsies were obtained. Grade 3 flap valve on retroflexed examination of the cardia with v lax LES. The pyloric outlet was very tight dilated to 20 mm with ballon, no tears noted. Minimal gastric movement seen Duodenum: Normal bulb and descending duodenum, Intervention: Biopsies as noted above, balloon dilation Impression/Findings: tight pyloric outlet lax LES irregular z line gastritis possible gastroparesis PLAN: f/u bx results cont with reglan as helping, avoid greasy foods if balloon dilation helped can do again prn BIOPSY Received: 12/01/22 Diagnosis A. Stomach, biopsy: - Antral-type and oxyntic mucosa with moderate chronic active inflammation and intestinal metaplasia; negative for dysplasia. - Positive for H pylori. B. GE junction, biopsy: - Cardiofundic-type mucosa with moderate chronic, focally active, inflammation; no intestinal metaplasia seen. - Active esophagitis (rare eosinophils and neutrophils) Assessment & Plan Assessment & Plan (1) H. pylori infection: Code(s): A04.8 - Other specified bacterial intestinal infections Plan: He tolerated the procedure well. He has lost wt again! Need to get labs, eating ok, still has some appetite issues and nausea. Energy generally ok for his age. WE review the EGD and he is positive for HP. Will send quad therapy, No old problems perceived with metformin as this can sometimes cause nausea. Given the fact that there is no significant food allergies or other derangements I think the H pylori would be the driving problem. Other than this is only other complaint is knee pain. ROV 6 weeks. (2) Poorly controlled diabetes mellitus: Code(s): E11.65 - Type 2 diabetes mellitus with hyperglycemia (3) Glucosuria: Code(s): R81 - Glycosuria (4) Upper abdominal pain: Comment: bloating/gas Code(s): R10.10 - Upper abdominal pain, unspecified (5) Weight loss: Code(s): R63.4 - Abnormal weight loss (6) Erosive gastritis: Code(s): K29.60 - Other gastritis without bleeding Plan He tolerated the procedure well. He has lost wt again! Need to get labs, eating ok, still has some appetite issues and nausea. Energy generally ok for his age. WE review the EGD and he is positive for HP. Will send quad therapy, No old problems perceived with metformin as this can sometimes cause nausea. Given the fact that there is no significant food allergies or other derangements I think the H pylori would be the driving problem. Other than this is only other complaint is knee pain. ROV 6 weeks. Medications: New bismuth subsalicylate (Bismuth) 2 tabs PO QID 112 tabs 0RF 14 days metronidazole 1,000 mg (2 x 500 mg) PO BID 56 tabs 0RF 14 days tetracycline 1,000 mg (2 x 500 mg) PO Q12H 56 caps 0RF 14 days pantoprazole (Protonix) 40 mg PO BID 60 tabs 1RF 30 days K29.60 - Other gastritis without bleeding, A04.8 - Other specified bacterial intestinal infections Discontinued pantoprazole Discontinued Reason: Doctor's Order 20 mg PO BID 2 weeks 28 tabs 0RF Coding Level of Care Code Est Pt Level 3 (41472) Diagnoses H. pylori infection A04.8 Poorly controlled diabetes mellitus E11.65 Glucosuria R81 Upper abdominal pain R10.10 Weight loss R63.4 Erosive gastritis K29.60
[2023-01-03 15:22] VITALS: BP 138/87; BMI 24.1
== END 2023-01-03 16:03 | disposition home or self-care (01) ==
PROVIDERS: PCP Internal Medicine; Visit Provider Nurse Practitioner
DX: A04.8 Other specified bacterial intestinal infections (principal); E11.65 Type 2 diabetes mellitus with hyperglycemia; R81 Glycosuria; R10.10 Upper abdominal pain, unspecified; R63.4 Abnormal weight loss; K29.60 Other gastritis without bleeding
CPT/HCPCS: 99213

== ENCOUNTER 2023-05-17 09:50 | Outpatient (AMB) | payer MEDICARE, SELFPAY ==
--- NOTE | 2023-05-17 09:51 | A.OFFVIS_ITS ---
Intake Intake Visit Reasons: med review Intake Note: Patient presents today for a telehealth follow-up on medication review Meds- Tadalafil,Sildenafil Allergies to Antibiotic- No Known Allergies Blood Thinner- None Field Radio Operator Required: No Allergies acetaminophen Adverse Reaction (Mild, Verified 05/17/23 09:52) Stomach Upset Medication List - Last Reconciled 05/17/23 by Ronald Sotelo MD amitriptyline 25 mg PO BEDTIME atorvastatin 40 mg PO DAILY bismuth subsalicylate (Bismuth) 2 tabs PO QID 14 days blood sugar diagnostic ([employer] Verio test strips) As directed cholecalciferol (vitamin D3) 25 mcg PO DAILY ferrous gluconate 324 mg PO BEDTIME glipizide 10 mg PO BID hydrocortisone 2.5% 1 appl topical DAILY PRN lancets ([employer] Machine[employer] Delica Plus Lancet) As directed lisinopril 2.5 mg PO DAILY metformin 500 mg PO BID metoclopramide HCl (Reglan) 5 mg PO QIDACHS metronidazole 1,000 mg (2 x 500 mg) PO BID 14 days pantoprazole (Protonix) 40 mg PO BID 30 days sildenafil 100 mg PO DAILY PRN 30 days tadalafil 10 mg PO DAILY 90 days tetracycline 1,000 mg (2 x 500 mg) PO Q12H 14 days trazodone 50 mg PO BEDTIME HPI HPI Comments History of Present Illness Details Wellingotn FELIPE is a very pleasant male. They are a patient of Dr Page. They are seen in the office today for the following urologic conditions. - Peyronie's disease - erectile dysfunction in setting of jose mckeon Telemedicine Evaluation 15 min Consultation DoxOpenplay Sonja Video attempted Some improvement Twelve month follow-up HbA1c 7.2 Erectile dysfunction setting of diabetes Current therapy daily tadalafil with demand sildenafil Diabetes medications include glipizide and metformin Peyronie's Disease:?ED responds to combination of daily cialis with on demand viagra. ? The patient presents for?followup up evaluation for penile disorder.? Primary complaint is ?penile curvature, dorsally, associated erectile dsyfunction.? The problem has been present?since Mar 2017 ?- noted mid shaft curvature ?- initially with pain and now without.? At this time he experiences?partial erections sufficient for penetrative intercourse, that last until ejaculation.? [place] has?is unaffected.? Associated symptoms include? penile pain ?No ? penile discharge ?No ? Prior management includes?- 10/31 penile plication ? Strength of urinary stream?no change.? Associated conditions? history of penile trauma ?No ? CAD ?No ? diabetes ?yes ? erectile dysfunction ?Yes [place] ? hypertension ?No ? peripheral vascular disease ?No ? Natural history of Peyronie's and treatment options have bee?use of vacuum device protocol, use of inflammatory collections director PFSH Medical History History of COVID-19 Smoker Chronic knee pain PTSD (post-traumatic stress disorder) Lumbar herniated disc CKD (chronic kidney disease), stage III Elevated cholesterol GERD (gastroesophageal reflux disease) Hyperlipidemia Erectile dysfunction Combined arterial insufficiency and corporo-venous occlusive erectile dysfunction Peyronie's disease Surgical History History of arthroscopy of right knee Hx of colonoscopy History of surgery H/O shoulder surgery Family History Father No problems noted. Mother No problems noted. Social History Patient Tobacco Use Status: Current everyday Tobacco user Tobacco use type: Cigarette Cigarette Packs Per Day: 0.5 Cigarettes Per Day: 10 Second Hand Smoke Exposure: Yes Review of Systems Const All systems reviewed & are unremarkable except as noted in HPI and below Reports no additional complaints Resp Reports no additional complaints GI Reports no additional complaints Reports as per HPI Musc Reports no additional complaints Physical Exam Telemedicine evaluation Appropriate responses Regular breathing rate and rhythm HEENT Head: Yes normal to inspection Ears: hearing grossly normal bilaterally Eyes General: appearance normal, both eyes and all related structures Neck Neck: Yes normal visual inspection Chest Chest palpation & inspection: normal inspection of the chest Resp Effort & Inspection: normal respiratory effort and able to speak in complete sentences Assessment & Plan Assessment & Plan (1) BPH w urinary obs/LUTS: Code(s): N40.1 - Benign prostatic hyperplasia with lower urinary tract symptoms; N13.8 - Other obstructive and reflux uropathy (2) Erectile dysfunction due to arterial insufficiency: Code(s): N52.01 - Erectile dysfunction due to arterial insufficiency Plan Six-month follow-up Medications: Refilled tadalafil 10 mg PO DAILY 90 days 90 tabs 1RF N13.8 - Other obstructive and reflux uropathy, N40.1 - Benign prostatic hyperplasia with lower urinary tract symptoms sildenafil administer 30 minutes to 4 hours before activity not to exceed 1 tab daily 100 mg PO DAILY 30 days PRN 6 tabs 6RF sexual activity Patient Instructions: Imaging studies, laboratory and physical exam results were discussed and reviewed in detail. No major barriers to patient understanding were identified. An opportunity to ask questions regarding the treatment plan was provided. All questions were answered. The patient expressed understanding and agreement with the above treatment plan. The patient is aware they should contact our office by phone for worsening of their current condition or the appearance of new urologic symptoms. Compliance is encouraged with any medications and followup testing that is ordered. It is a privilege to participate in the urologic care of your patient. If you have any questions or concerns regarding treatment for the above conditions, or other urologic issues, please do not hesitate to contact me. The office telephone contact is [phone]. This note is constructed using voice recognition software. While every effort has been made to ensure accuracy shear grinder operator errors may have been included. Yours sincerely, Dr Ronald Sotelo MD, [facility] - Urology Providers of Expert, Compassionate Care for the Genitourinary System Telehealth Telehealth Location of provider rendering services: practice address Location of patient: address on file Patient Identification confirmed using: Name, : Yes Telehealth method: video Patient verbally consented to treatment: Yes Patient verbally consented to billing insurance company: Yes Patient informed of any privacy concerns related to visit: Yes Coding Level of Care Code Tele Est Pt Level 3 (26961) Diagnoses BPH w urinary obs/LUTS N40.1; N13.8 Erectile dysfunction due to arterial insufficiency N52.01
== END 2023-05-17 10:27 | disposition home or self-care (01) ==
LOC: HO.HUSH 09:51
PROVIDERS: PCP Internal Medicine; Visit Provider Urology
DX: N40.1 Benign prostatic hyperplasia with lower urinary tract symptoms (principal); N13.8 Other obstructive and reflux uropathy; N52.01 Erectile dysfunction due to arterial insufficiency
CPT/HCPCS: 99213

== ENCOUNTER → 2023-05-17 09:50 | Outpatient (BNVA) | payer MEDICARE, SELFPAY | PROVIDERS: PCP Internal Medicine; Visit Provider Urology ==

== ENCOUNTER 2024-01-10 11:38 | Outpatient (AMB) | payer MEDICARE, SELFPAY ==
--- NOTE | 2024-01-10 11:44 | MHC.OFFVIS ---
Intake Visit Reasons: 6m follow up Intake Note: Patient is Present for Follow Up Urology Medication: Sildenafil, Tadalafil Antibiotic Allergies:None Blood Thinners: None Finisher Brush Required: No Accompanied by: Self / Same As Patient Allergies acetaminophen Adverse Reaction (Mild, Verified 01/10/24 11:45) Stomach Upset HPI Comments Details: Wellington FELIPE is a very pleasant male. He is a patient of Dr Page. They are seen in the office today for the following urologic conditions. - Peyronie's disease - erectile dysfunction in setting of diabetes Six-month follow-up Continue good response to erectile medications Refill medications 12 month follow-up HbA1c 7.2 Erectile dysfunction setting of diabetes Current therapy daily tadalafil with demand sildenafil Diabetes medications include glipizide and metformin Peyronie's Disease:?ED responds to combination of daily cialis with on demand viagra. ? The patient presents for?followup up evaluation for penile disorder.? Primary complaint is ?penile curvature, dorsally, associated erectile dsyfunction.? The problem has been present?since Mar 2017 ?- noted mid shaft curvature ?- initially with pain and now without.? At this time he experiences?partial erections sufficient for penetrative intercourse, that last until ejaculation.? [place] has?is unaffected.? Associated symptoms include? penile pain ?No ? penile discharge ?No ? Prior management includes?- 10/31 penile plication ? Strength of urinary stream?no change.? Associated conditions? history of penile trauma ?No ? CAD ?No ? diabetes ?yes ? erectile dysfunction ?Yes On [place] ? hypertension ?No ? peripheral vascular disease ?No ? 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 Mother No problems noted. Social History Patient Tobacco Use Status: Current everyday Tobacco user Tobacco use type: Cigarette Cigarette Packs Per Day: 0.5 Cigarettes Per Day: 10 Second Hand Smoke Exposure: Yes Review of Systems Const Denies chills and Denies fever(s) Card Reports no additional complaints and Denies syncope Resp Denies cough GI Denies abdominal pain and Denies heartburn Reports as per HPI and Denies change in libido Neuro Denies syncope Psych Denies change in libido Endo Denies change in libido Physical Exam Const General: cooperative, healthy appearing, comfortable and no acute distress Orientation/consciousness: patient oriented x3 HEENT Face and sinus: Yes normal facial exam Mouth: moist mucous membranes Neck Neck: Yes normal visual inspection, Yes full ROM and Yes trachea midline Chest Chest palpation & inspection: normal inspection of the chest Resp Effort & Inspection: normal respiratory effort, able to speak in complete sentences and no respiratory distress GI Inspection: Yes normal to inspection Back/Spine/Pelvis Cervical Spine: normal cervical lordosis Thoracic/Lumbar Spine: thoracic and lumbar spine normal to inspection Skin General skin exam: no rashes or lesions noted Neuro General: patient oriented x3, gait normal, tone normal and moves all extremities Extrem General: Yes normal to inspection and Yes capillary refill normal Assessment & Plan Assessment & Plan (1) Erectile dysfunction due to arterial insufficiency: Code(s): N52.01 - Erectile dysfunction due to arterial insufficiency Category: Medical (2) BPH w urinary obs/LUTS: Code(s): N40.1 - Benign prostatic hyperplasia with lower urinary tract symptoms; N13.8 - Other obstructive and reflux uropathy Category: Medical Plan Refill medications Twelve month follow-up Orders: Orders Prostate Specific Antigen 364 Days N13.8 - Other obstructive and reflux uropathy, N40.1 - Benign prostatic hyperplasia with lower urinary tract symptoms Patient Instructions: Imaging studies, laboratory and physical exam results were discussed and reviewed in detail. No major barriers to patient understanding were identified. An opportunity to ask questions regarding the treatment plan was provided. All questions were answered. The patient expressed understanding and agreement with the above treatment plan. The patient is aware they should contact our office by phone for worsening of their current condition or the appearance of new urologic symptoms. Compliance is encouraged with any medications and followup testing that is ordered. It is a privilege to participate in the urologic care of your patient. If you have any questions or concerns regarding treatment for the above conditions, or other urologic issues, please do not hesitate to contact me. The office telephone contact is [phone]. This note is constructed using voice recognition software. While every effort has been made to ensure accuracy vending service technician errors may have been included. Yours sincerely, Dr Ronald Sotelo MD, [facility] - Urology Providers of Expert, Compassionate Care for the Genitourinary System Coding Level of Care Code Est Pt Level 3 (05384) Diagnoses Erectile dysfunction due to arterial insufficiency N52.01 BPH w urinary obs/LUTS N40.1; N13.8
== END 2024-01-10 12:04 | disposition home or self-care (01) ==
LOC: HO.HUSH 11:38
PROVIDERS: PCP Internal Medicine; Visit Provider Urology
DX: N52.01 Erectile dysfunction due to arterial insufficiency (principal); N40.1 Benign prostatic hyperplasia with lower urinary tract symptoms; N13.8 Other obstructive and reflux uropathy
CPT/HCPCS: 99213

== ENCOUNTER → 2024-01-10 11:38 | Outpatient (BNVA) | payer MEDICARE, SELFPAY | PROVIDERS: PCP Internal Medicine; Visit Provider Urology | DX: N52.01 Erectile dysfunction due to arterial insufficiency (principal); N40.1 Benign prostatic hyperplasia with lower urinary tract symptoms; N13.8 Other obstructive and reflux uropathy | CPT/HCPCS: 99212 ==

== ENCOUNTER 2024-12-05 13:02 | Outpatient (AMB) | payer MEDICARE, SELFPAY ==
--- NOTE | 2024-12-05 13:27 | MHC.OFFVIS ---
Vital Signs 12/05/24 13:28 Height 5 ft 9 in Weight 166 lb 7.184 oz BMI 24.6 BP 122/56 L Blood Pressure Location Lt brachial Position Sitting Pulse 87 Pulse Source Pulse Oximeter Pulse Oximetry (%) 98 Oxygen Delivery Method Room Air Intake Visit Reasons: Cough Lead Database Developer Required: No Allergies ibuprofen (From Motrin) Allergy (Unknown, Verified 12/05/24 13:31) kidney function acetaminophen Adverse Reaction (Mild, Verified 12/05/24 13:31) Stomach Upset HPI Comments Details: The patient is here for pulmonary evaluation. The patient is a 69-year-old gentleman with smoking presenting with worsening respiratory symptoms. The patient states that he has been having worsening chest discomfort primarily in the back when taking a deep breath in also shortness of breath. More recently he developed a cold. He was evaluated in the ER and was tested positive for rhinovirus/enterovirus. More recently in September the patient did have a CT scan of the chest which was evaluated by me. Does have some emphysema. Does have some areas of thickening or fibrosis in the bases per the report and also mucus plugging. Otherwise no other significant finding noted. He is participating in the lung cancer screening program. The patient is not using any inhalers. He did undergo pulmonary function studies sometime in the summer at [facility] demonstrating no evidence of any obstructive nor restrictive ventilatory defects although he did have an isolated moderate diffusion impairment with a DLCO 57% predicted. The patient will start nebulizer treatment with a flutter valve to help mucus clearance. Will go ahead and treat him for chronic bronchitis with azithromycin Sunday for 6-8 weeks. He will return in 2 months. In the meantime he is going to get vaccinated. The patient overall is doing okay if he has any worsening issues she can always call for further recommendations. [facility] Medical History (Updated 12/07/24 @ 20:28 by Paul Gómez MD) COPD (chronic obstructive pulmonary disease) Chronic bronchitis History of COVID-19 Smoker Chronic knee pain PTSD (post-traumatic stress disorder) Lumbar herniated disc CKD (chronic kidney disease), stage III Elevated cholesterol GERD (gastroesophageal reflux disease) Hyperlipidemia Erectile dysfunction Combined arterial insufficiency and corporo-venous occlusive erectile dysfunction Peyronie's disease Surgical History History of arthroscopy of right knee Hx of colonoscopy History of surgery H/O shoulder surgery Family History Father No problems noted. Mother No problems noted. Social History Patient Tobacco Use Status: Current everyday Tobacco user Tobacco use type: Cigarette Cigarette Packs Per Day: 0.5 Cigarettes Per Day: 10 Second Hand Smoke Exposure: Yes Review of Systems Const Denies fever(s) and Reports weight loss Eyes Reports no additional complaints ENT Reports nasal congestion Card Denies chest pain and Reports dyspnea on exertion Resp Reports cough, Reports dyspnea on exertion and Reports wheezing GI Denies abdominal pain Musc Reports no additional complaints Skin/Breast Denies rash Neuro Reports no additional complaints Endo Reports no additional complaints Aller/Immun Reports wheezing Physical Exam Vital Signs: Last Vital Signs Pulse 87 12/05/24 13:28 BP 122/56 L 12/05/24 13:28 Pulse Ox 98 12/05/24 13:28 Oxygen Delivery Method Room Air 12/05/24 13:28 BMI result Body Mass Index 24.6 Const General: comfortable HEENT Head: Yes normocephalic Neck Neck: Yes supple Chest Chest palpation & inspection: normal inspection of the chest Resp Effort & Inspection: normal respiratory effort Auscultation: diminished lung sounds Cardio Heart sounds: S1 normal heart sound present and S2 normal heart sound present GI Palpation (GI): Soft to palpation Skin General skin exam: no rashes or lesions noted Extrem General: Yes clubbing, No cyanosis and No edema Assessment & Plan Assessment & Plan (1) Chronic bronchitis: Code(s): J42 - Unspecified chronic bronchitis Category: Medical Qualifiers: Chronic bronchitis type: mixed simple and mucopurulent Qualified Code(s): J41.8 - Mixed simple and mucopurulent chronic bronchitis (2) COPD (chronic obstructive pulmonary disease): Code(s): J44.9 - Chronic obstructive pulmonary disease, unspecified Category: Medical Qualifiers: COPD type: emphysema Emphysema type: centrilobular Qualified Code(s): J43.2 - Centrilobular emphysema Plan RUFINO as needed Start Azithromycin MWF 6-8 weeks Requesting LDCT from [employer] F/U 2 months Medications: New albuterol sulfate 90 mcg/actuation 2 inhalations inhalation Q6H PRN 18 grams 12RF shortness of breath or wheezing 30 days J44.9 - Chronic obstructive pulmonary disease, unspecified azithromycin Take 1 tablet on Sunday/Sunday/Sunday 250 mg PO 3XW 12 tabs 1RF 28 days K21.9 - Gastro-esophageal reflux disease without esophagitis albuterol sulfate 2.5 mg (3 mL) inhalation Q4H PRN 180 mL 11RF shortness of breath or wheezing 30 days Coding Level of Care Code New Pt Level 4 (82160) Diagnoses Mixed simple and mucopurulent chronic bronchitis J41.8 Chronic bronchitis type: mixed simple and mucopurulent Centrilobular emphysema J43.2 COPD type: emphysema Emphysema type: centrilobular Time Spent (min) 35
[2024-12-05 13:28] VITALS: BP 122/56; PULSE 87; O2SAT 98; BMI 24.6
--- OUTSIDE RECORDS SUMMARY | 2024-12-05 14:24 | XMS_ITS | Clinical Summary ---
Author Organization [facility] Address [address] [place] [address] Care Team Providers Care Medical Records Supervisor Name Role Phone Aldo Page MD Primary Care Provider [phone] Allergies Active Allergy Reactions Criticality Noted Date Comments Acetaminophen 03/16/2017 Medications Medication Sig Dispensed Refills Start Date End Date Status atorvastatin (LIPITOR) tablet 40 mg 0 03/13/2017 Active gabapentin (NEURONTIN) 600 MG tablet TAKE 1 TAB BY MOUTH AT BEDTIME. 1 01/19/2017 Active metFORMIN (GLUCOPHAGE-XR) ER 24 hr tablet 500 mg TAKE 1 TAB BY MOUTH DAILY (WITH BREAKFAST). 5 01/06/2017 Active omeprazole (PRILOSEC) 20 MG capsule TAKE ONE CAPSULE BY MOUTH EVERY DAY 1 01/08/2017 Active oxyCODONE-acetaminop hen (PERCOCET) 5-325 MG per tablet TAKE 1 TO 2 TABLETS BY MOUTH EVERY 12 HOURS NEEDED FOR PAIN 0 03/08/2017 Active VIAGRA 50 MG tablet 0 12/10/2016 Activ e CIALIS 10 MG tablet Take 10 mg by mouth. as directed 0 04/07/2017 Active cyclobenzaprine (FLEXERIL) 10 MG tablet TAKE 1 TAB BY MOUTH 3 TIMES DAILY NEEDED FOR MUSCLE SPASMS FOR UP TO 10 DAYS. 0 07/27/2017 Active metFORMIN (GLUCOPHAGE) tablet 500 mg Take 500 mg by mouth 2 (two) times a day with meals. 2 08/01/2017 Active CIALIS 5 MG tablet TAKE 1 TAB BY MOUTH NEEDED FOR ERECTILE DYSFUNCTION FOR UP TO 30 DAYS. 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 03/16/2017 Incomplete tear of left rotator cuff 03/16/2017 Shoulder impingement, left 03/16/2017 Family History Medical History Relation Name Comments Hypertension Brother Cancer Father Diabetes Mother Relation Name Status Comments Brother Father Mother Social History Tobacco Use Types Packs/Day Years Used Date Smoking Tobacco: Never Assessed Sex and Gender Information Value Date Recorded Sex Assigned at Not on file Gender Identity Not on file Sexual Orientation Not on file Plan of Treatment Health Maintenance Due Date Last Done Comments Hepatitis C Screening 1955 COVID-19 Vaccine (#1) 1955 Pneumococcal Vaccine (1 of 2 - PCV) 1961 Depression Screening 1967 Preventative Health Evaluation 1973 DTap / Tdap / Td (1 - Tdap) 1974 Colon Cancer Screening (Colonoscopy) 01/25/2000 Shingrix-Zoster Vaccine (1 of 2) 2005 Fall Risk Assessment 01/25/2020 Influenza Vaccine (#1) 2024 RSV Adult > 60+ Yrs or Pregn ant (1 - 1-dose 75+ series) 2030 Hepatitis B Vaccines Aged Out No long er eligible based on patient's age to complete this topic RSV Ped < 20 months Aged Out No longe r eligible based on patient's age to complete this topic Care Teams Medical Records Supervisor Relationship Specialty Start Date End Date Aldo Page MD PCP - General Internal Medicine 03/23/17
--- OUTSIDE RECORDS SUMMARY | 2024-12-05 14:24 | XMS_ITS | Clinical Summary ---
Author Organization [facility] Address [address] [facility] [address] [place] [address] Phone Care Team Providers Care Lighting Director Name Role Phone Aldo Page MD Primary Care Provider [phone] Allergies Active Allergy Reactions Criticality Noted Date Comments Acetaminophen 03/16/2017 Medications tadalafil (CIALIS) 10 MG tablet Take 10 mg by mouth 04/07/2017 Active omeprazole (PriLOSEC) [address] capsule Take 1 capsule by mouth 1 (one) time each day 01/08/2017 Active metFORMIN (GLUCOPHAGE) 500 MG tablet Take 500 mg by mouth 2 (two) times a day with meals 08/01/2017 Active gabapentin (NEURONTIN) 600 MG tablet TAKE 1 TAB BY MOUTH AT BEDTIME. 01/19/2017 Active cyclobenzaprine (FLEXERIL) 10 MG tablet TAKE 1 TAB BY MOUTH 3 TIMES DAILY NEEDED FOR MUSCLE SPASMS FOR UP TO 10 DAYS. 07/27/2017 Active atorvastatin (LIPITOR) 40 MG tablet 03/13/2017 Active sildenafil (VIAGRA) 100 MG tablet Take 100 mg by mouth if needed 11/21/2020 Active glipiZIDE (GLUCOTROL XL) 5 MG 24 hr tablet Take 5 mg by mouth 2 (two) times a day 10/14/2020 Active amitriptyline (ELAVIL) 75 MG tablet Take 75 mg by mouth 1 (one) time each day 09/16/2020 Active lisinopril 5 MG tablet Take 1 tablet (5 mg total) by mouth 1 (one) time each day 30 tablet 2 12/15/2020 Active oxyCODONE (OXY-IR) 5 MG immediate release capsule Take 5 mg by mouth every 6 (six) hours if needed for moderate pain Active Active Problems Problem Noted Date Diagnosed Date Proteinuria, not otherwise specified 08/15/2021 Stage 3a chronic kidney disease 08/15/2021 Hypertension 12/15/2020 Type 2 diabetes mellitus wit h diabetic chronic kidney disease 12/15/2020 Wound 05/17/2017 Adhesive capsulitis of shoulder 03/16/2017 Impingement syndrome of left shoulder region 07/2017 Pain in left shoulder 03/16/2017 Partial thickness rotator cuff tear 03/16/2017 Family History Medical History Relation Comments Kidney disease Brother Cancer Father Heart failure Mother Relation Status Comments Brother (Age 60) Father Mother Social History Tobacco Use Types Packs/Day Years Used Date Smoking Tobacco: Every Day Cigarettes Smokeless Tobacco: Never Tobacco Cessation:Ready to Q uit: Not Asked; Counseling Given: Not Answered Comments:week Alcohol Use Standard Drinks/Week Comments Never 0 (1 standard drink = 0.6 oz pur e alcohol) Sex and Gender Information Value Date Recorded Sex Assigned at Not on file Legal Sex Male 1:58 PM EDT Gender Identity Not on file Sexual Orientation Not on file Last Filed Vital Signs Vital Sign Reading Time Taken Comments Blood Pressure 150/78 11/10/2021 12:57 PM EDT Pulse 89 11/10/2021 12:57 PM EDT Temperature - - Respiratory Rate - - Oxygen Saturation 99% 02/16/2021 1:15 PM EST Inhaled Oxygen Concentration - - Weight 81.6 kg (179 lb 12.8 oz) 022 12:57 PM EDT Height - - Body Mass Index - - Plan of Treatment Health Maintenance Due Date Last Done Comments Pneumococcal Vaccine: 50+ Ye ars (1 of 2 - PCV) 1974 Colorectal Cancer Screening: Annual FOBT 01/25/2004 Colorectal Cancer Screening: Colonoscopy 01/25/2004 Colorectal Cancer Screening: Sigmoidoscopy 01/25/2004 Diabetes: Hemoglobin A1C 12/15/2020 Diabetes: Ophthalmology Exam 12/15/2020 Diabetes: Pedal Pulse Checked 12/15/2020 Diabetes: Sensory Foot Exam 12/15/2020 Diabetes: Visual Foot Exam 12/15/2020 Influenza Vaccine (#1) 2024 Hepatitis B Vaccine Aged Out No longe r eligible based on patient's age to complete this topic Insurance [facility] Adv PPO ([id number]) [facility] Adv PPO ([id number]) Care Teams Lighting Director Relationship Specialty Start Date End Date Aldo Page MD PCP - General Internal Medicine 12/07/20
--- OUTSIDE RECORDS SUMMARY | 2024-12-05 14:24 | XMS_ITS | Encounter Summary ---
Author Organization [facility] Address [address] [facility] [address] [place] [address] Phone Care Team Providers Care Automation Sales Manager Name Role Phone Aldo Page MD Primary Care Provider [phone] Reason for Visit * Reason Comments Med Refill Encounter Details Date Type Department Care Team (Late st Contact Info) Description 01/02/2022 Refill [facility] [address] [facility] [address] [place] [phone] Agus Tyler, DO [address] [place] [id number] Social History Tobacco Use Types Packs/Day Years Used Date Smoking Tobacco: Every Day Cigarettes Smokeless Tobacco: Never Comments:week Alcohol Use Standard Drinks/Week Comments Never 0 (1 standard drink = 0.6 oz pur e alcohol) Sex and Gender Information Value Date Recorded Sex Assigned at Not on file Legal Sex Male 1:58 PM EDT Gender Identity Not on file Sexual Orientation Not on file documented as of this encounter Plan of Treatment Not on file documented as of this encounter Visit Diagnoses Not on filedocumented in this encounter Care Teams Automation Sales Manager Relationship Specialty Start Date End Date Aldo Page MD PCP - General Internal Medicine 12/07/20 documented as of this encounter
--- OUTSIDE RECORDS SUMMARY | 2024-12-05 14:24 | XMS_ITS | Clinical Summary ---
Author Organization Patient Business Ser [facility] Address [address] [place] [address] Care Team Providers Care Strategic Client Executive Name Role Phone Aldo Page MD Primary Care Provider [phone] Allergies Active Allergy Reactions Criticality Noted Date Comments Acetaminophen 11/17/2013 Gi distress fron tylenol Ibuprofen 07/17/2023 Due to kidney Medications traZODone (DESYREL) 50 mg tablet Take 1 tablet (50 mg total) by mouth at bedtime. 11/22/19 24 Active lisinopriL (PRINIVIL,ZESTRIL) 5 mg tablet Take 1 tablet (5 mg total) by mouth 1 (one) time each day. 12/16/19 21 Active glipiZIDE (GLUCOTROL) 10 mg tablet TAKE 1 TABLET BY MOUTH TWICE A DAY BEFORE MEALS 11/22/19 24 Active rOPINIRole (REQUIP) 1 mg tablet Take 1 tablet (1 mg total) by mouth at bedtime. 11/22/19 24 Active lidocaine HCl-hydrocortison ac 3-0.5 % kit PLACE 1 APPLICATOR RECTALLY 2 TIMES DAILY NEEDED FOR OTHER (HEMORRHOIDS). 11/06/19 24 Active hydrocortisone (ANUSOL-HC) 2.5 % rectal cream USE UP TO 5 TIMES DAILY NEEDED. 06/01/19 22 Active tadalafiL (CIALIS) 10 mg tablet TAKE 1 TABLET BY MOUTH DIRECTED 04/07/19 18 Active blood-glucose meter kit Use to test blood sugar twice daily 05/09/19 22 Active lancets 33 gauge misc Apply 1 Stick topically 2 times daily. DX: E11.91 08/19/19 23 Active blood sugar diagnostic (OneTouch Verio test strips) test strip USE TO TEST BLOOD SUGARS TWICE A DAY / DX: E11.91 08/19/19 23 Active blood-glucose meter kit USE ONCE DAILY 12/12/19 24 Active OneTouch Verio Flex meter miscIndications:Ty pe 2 diabetes mellitus with diabetic chronic kidney disease, unspecified CKD stage, unspecified whether fci insulin use ([facility] V24, [facility] V28) USE ONCE DAILY DIRECTED 1 kit 05/22/19 25 Active omeprazole (PriLOSEC) [address] capsule Take 1 capsule (40 mg total) by mouth 1 (one) time each day. Do not crush or chew. Active lisinopriL (PRINIVIL,ZESTRIL) 5 mg tabletIndications: Type 2 diabetes mellitus with stage 2 chronic kidney disease, without long-term current use of insulin ([facility] V24, [facility] V28) Take 1 tablet (5 mg total) by mouth 1 (one) time each day. 30 each 5 08/30/19 25 025 Active metFORMIN (GLUCOPHAGE) 500 mg tabletIndications: DM (diabetes mellitus), type 2 with peripheral vascular complications ([facility] V24, [facility] V28) Take 1 tablet (500 mg total) by mouth 2 (two) times a day with meals. 60 each 2 09/03/19 25 026 Active omeprazole (PriLOSEC) [address] capsuleIndications :Gastro-esophageal reflux disease without esophagitis TAKE 1 CAPSULE BY MOUTH DAILY FOR 180 DAYS. 90 capsule 1 09/16/19 25 Active atorvastatin (LIPITOR) 40 mg tabletIndications: Mixed hyperlipidemia TAKE 1 TABLET BY MOUTH EVERY DAY 90 tablet 1 10/28/19 25 Active benzonatate (TESSALON) 100 mg capsule Take 1 capsule (100 mg total) by mouth every 8 (eight) hours for 7 days. Do not crush or chew. 21 capsule 11/13/19 25 025 Hospital, Clinic, or Other Facility Administered Medication Ordered Dose Route Frequency Start Date End Date Status TC-99M tetrofosmin P radio-isotope injection 8.8 millicurie 8.8 millicurie IV Once in imaging 11/25/2024 11/25/2024 Ended TC-99M tetrofosmin P radio-isotope injection 28 millicurie 28 millicurie IV Once in imaging 11/25/2024 11/25/2024 Ended regadenoson (LEXISCAN) injection 0.4 mg 0.4 mg IV Once in imaging 11/25/2024 11/25/2024 End ed Active Problems Problem Noted Date Diagnosed Date Atypical chest pain 10/02/2024 Acute electrocardiogram changes 10/02/2024 Class 1 obesity due to exces s calories with serious comorbidity and body mass index (BMI) of 30.0 to 30.9 in adult 02/01/2024 Restless leg 05/30/2023 Stage 3a chronic kidney disease ([facility] V24, [facility] V28) 08/15/2021 Proteinuria 08/15/2021 Type 2 diabetes mellitus wit h diabetic chronic kidney disease ([facility] V24, [facility] V28) 12/15/2020 Primary hypertension 12/15/2020 Dilatation of aorta ([facility] [place]24) 12/01/2019 Overview (11/23/2023): 11/2020: stable, if slightly decreased 11/2019: mild fusiform dilatation of the infrarenal abdominal aorta unchanged compared to 04/27/2018 Lumbar herniated disc 11/20/2019 Diabetes mellitus with micro albuminuria ([facility] [place], [facility] V28) 11/10/2019 CKD (chronic kidney disease) stage 3, GFR 30-59 ml/min ([facility] V24, [facility] V28) 05/08/2019 Injury, unspecified, initial encounter 8 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 ([facility] V24, [facility] V28) 03/16/2017 Adhesive capsulitis of shoulder 03/16/2017 Impingement syndrome of left shoulder region 07/2017 Incomplete tear of left rotator cuff 03/16/2017 Pain in left shoulder 03/16/2017 Shoulder impingement, left 03/16/2017 DM (diabetes mellitus), type 2 with peripheral vascular complications ([facility] V24, [facility] V28) 03/08/2017 Erectile dysfunction 07/01/2014 PTSD (post-traumatic stress disorder) 12/19/2013 Hyperlipidemia 11/21/2013 Knee pain, chronic 11/21/2013 GERD (gastroesophageal reflux disease) 4 Encounters Date Type Department Care Team Description 11/25/2024 9:30 AM EDT Ancillary Procedure [facility] Cardiology [facility] [address] [place] [address] 11/12/2024 4:03 PM EDT - 11/12/2024 5:41 PM EDT Emergency [facility] Emergency [address] [place] [address] Cirilo Barroso MD Rhinovirus (Primary Dx) Discharge Disposition: Home or Self Care 11/11/2024 2:43 PM EDT - 11/11/2024 6:27 PM EDT Emergency [facility] Emergency [address] [place] [address] Discharge Disposition: Home or Self Care 10/06/2024 2:30 PM EDT Office Visit Pulmonology - [facility] [address] [phone] Dieter Pollack MD Chronic cough (Primary Dx) 10/03/2024 10:50 AM EDT Office Visit [address] [place] [address] Latha Cuevas MD Atypical chest pain 10/01/2024 Telephone Lung Screening Program - [facility] [address] [facility] [address] [place] [address] Manju Riojas [place] 09/30/2024 2:13 PM EDT - 09/30/2024 11:59 PM EDT Hospital Encounter [facility] CT Scan [address] [place] [phone] Chest pain at rest Discharge Disposition: Home or Self Care 09/18/2024 1:00 PM EDT Ancillary Procedure Pulmonology - [facility] [address] [facility] [address] [place] [phone] Chest pain at rest 09/08/2024 8:15 AM EDT Consult Pulmonology - [facility] [address] [facility] [address] [place] [address] Dieter Pollack MD Chest pain at rest (Primary Dx); Chest congestion; Former cigarette smoker; Primary hypertension 09/05/2024 1:00 PM EDT Telemedicine Internal Medicine - [facility] [address] [place] [address] Encounter for subsequent annual wellness visit (AWV) in Medicare patient (Primary Dx) from Last 3 Months Immunizations Name Administration Dates Next Due Influenza Quadravalent, MDCK , 0.5ml, preservative free (Flucelvax) 6mo and older 11/29/2017 Influenza Quadravalent, MDCK , 0.5ml, with preservative (Flucelvax) 6mo and older 02/14/2017 Influenza trivalent, 0.5mL ( Fluad) 65yo and older 12/13/2023 Influenza trivalent, 0.5mL ( Fluzone High-dose) 65yo and older 12/29/2021,03/21/2021 Influenza trivalent, with pr eservative (Fluzone; Afluria) 6mo and older 12/11/2018,12/06/2015,12/08/2014,12/19 Pfizer SARS-CoV-2 COVID-19, mRNA, LNP-S, preservative free 10/01/2020,09/10/2020 Pneumococcal conjugate 13 va lent (Prevnar 13, PCV13) 2mo and older 12/06/2017 Pneumococcal conjugate 20 va lent (Prevnar 20, PCV 20) 2mo and older 12/13/2023 Pneumococcal polysaccharide 23 valent (Pneumovax 23) 2yo and older 03/21/2021,12/06/2015 Tdap Tetanus diptheria acell ular pertussis (Boostrix; Adacel) 7yo and older 11/17/2013 Zoster Live 06/13/2016 Surgical History Surgery Date Site/Laterality Comments KNEE ARTHROSCOPY 03/12/2003 Right PROCEDURE: UT ARTHROSCOPY AID [place] SPINE&/FX KNEE W/O FIXJ; COMMENT: partial knee replacement COLONOSCOPY W/ BIOPSIES 04/14/2014 PROCEDURE: UT COLONOSCOPY W/BIOPSY SINGLE/MULTIPLE; COMMENT: several diminutive rectal polyps, path: hyperplastic Medical History Medical History Date Comments Chronic knee pain 2001 DX:Chronic kne e pain; COMMENT: right DM (diabetes mellitus), type 2 with peripheral vascular complications ([facility] V24, [facility] V28) 03/08/2017 DX:DM (diabetes mellitus), type 2 with peripheral vascular complications (HCC) Diabetes mellitus with microalbuminuria (CMS/HCC V24, CMS/HCC V28) 11/10/2019 DX:Diabetes mellitus with microalbuminuria (HCC) Lumbar herniated disc 11/20/2019 DX:Lumbar herniated disc Dilatation of aorta ([facility] V24) 12/01/2019 DX:Dilatation of aorta (HCC); COMMENT: 11/2019: mild fusiform dilatation of the infrarenal abdominal aorta unchanged compared to 04/27/2018 Family History Medical History Relation Name Comments Diabetes Brother x2 1 HTN Heart attack Brother x2 1 from [place] No Known Problems Daughter Lung cancer Father 61 Dementia Mother Diabetes Mother Heart attack Mother Heart failure Mother [place], DM, HTN : 84 of [place] No Known Problems Sister No Known Problems Son Relation Name Status Comments Brother x2 1 Alive Daughter Alive Father (Age 61) Mother (Age 84) Sister Alive Son Alive Social History Tobacco Use Types Packs/Day Years Used Date Smoking Tobacco: Every Day Cigarettes Smokeless Tobacco: Never Tobacco Cessation:Ready to Q uit: Not Asked; Counseling Given: Not Answered Alcohol Use Standard Drinks/Week Comments No 0 (1 standard drink = 0.6 oz pur e alcohol) Housing Instability Answer Date Recorde d Are you worried that in the next 2 months you may not have stable housing? No 09/05/2024 Food Access & Nutrition Answer Date Rec orded Do you have access to a vari ety of food including fruits and vegetables? Yes 09/05/2024 Health Literacy Answer Date Recorded How often do you need to hav e someone help you when you read instructions, pamphlets, or other written material from your doctor or pharmacy? Never 09/05/2024 Caregiver: How often do you need to have someone help you when you read instructions, pamphlets, or other written material from your doctor or pharmacy? Not on file 09/05/2024 Financial Risk Answer Date Recorded How hard is it for you to pa y for the very basics like food, housing, medical care, and air conditioning / heating? Not very hard 09/05/2024 Transportation Answer Date Recorded Has the lack of transportati on kept you from meetings, work, or from getting things needed for daily living? No Has the lack of transportati on kept you from medical appointments or from getting medications? No 09/05/2024 Social Isolation Answer Date Recorded How often do you feel lonely or isolated from th ose around you? Never 09/05/2024 Food Risk Answer Date Recorded Within the past 12 months we worried whether our food would run out before we got money to buy more. Never true 09/05/2024 Within the past 12 months th e food we bought just didn't last and we didn't have money to get more. Never true 09/05/2024 Dependent Care Answer Date Recorded Do you need help finding or paying for care for your loved ones. For example, child nurse or elderly care for an older adult? No 09/05/2024 Education Answer Date Recorded Do you think completing more education or training, like finishing a GED, going to college, or learning a trade, would be helpful for you? No 09/05/2024 Employment and Income Answer Date Recor ded During the last four weeks, have you been actively looking for work? No 09/05/2024 Living Situation Answer Date Recorded What is your living situation? 0 09/05/2024 Sex and Gender Information Value Date Recorded Sex Assigned at Male 10/07/2024 10:27 AM EDT Legal Sex Male 4:53 PM EDT Gender Identity Male 10/07/2024 10:29 AM EDT Sexual Orientation Straight 09/08/2024 11 :48 AM EDT Obstetrics History Last Filed Vital Signs Vital Sign Reading Time Taken Comments Blood Pressure 100/58 11/25/2024 9:55 AM EDT Pulse 113 11/12/2024 2:43 PM EDT Temperature 37.1 C (98.8 F) 11/12/2024 2:43 PM EDT Respiratory Rate 18 11/12/2024 2:43 PM EDT Oxygen Saturation 97% 11/12/2024 2:43 PM EDT Inhaled Oxygen Concentration - - Weight 74.8 kg (165 lb) 11/25/2024 9:50 AM EDT Height 175.3 cm (5' 9 ) 11/25/2024 9:50 AM EDT Body Mass Index 24.37 11/25/2024 9:50 AM EDT Plan of Treatment Upcoming Encounters Date Type Department Care Team (Late st Contact Info) Description 10/05/2025 2:00 PM EDT Office Visit Pulmonology - [place] [address] [place] [phone] Dieter Pollack MD [address] [place] [address] Health Maintenance Due Date Last Done Comments Diabetes: Annual Foot Exam 1965 RSV Immunization Adult Patients (1 - Risk 60-74 years 1-dose series) 2015 Zoster Vaccines (2 of 2) 01/05/2020 11/10/2019, 06/2016 COVID-19 Vaccine (3 - Pfizer risk series) 10/29/2020 10/01/2020, 09/10/2020 Abdominal Aortic Aneurysm (AAA) Screen 09/19/2021 DTaP,Tdap,and Td Vaccines (2 - Td or Tdap) 11/18/2023 11/17/2013 Diabetes: Annual Retina Eye Exam 04/02/2024 04/02/2023 Colorectal Cancer Screening: Colonoscopy 04/14/2024 04/14/2014 Lung Cancer Screening (Low Dose CT) 09/30/2024 10/01/2023, 09/25/2023, 09/21/2022, Additional history exists Influenza Vaccine (#1) 2024 , 12/29/2021, 03/21/2021, Additional history exists Diabetes: Blood Sugar Control Test (HGBA1C) 03/03/2025 09/01/2024, 11/22/2023, 11/22/2023 Diabetes: Annual Urine Albumin-Creatinine Ratio (uACR) 09/01/2025 09/01/2024, 11/22/2023 Diabetes: Annual GFR (Glomerular Filtration Rate) 09/01/2025 09/01/2024, 11/22/2023, 11/22/2023 Hypertension/CHF/CAD Annual BMP Blood Test 09/01/2025 09/01/2024, 11/22/2023, 11/22/2023 Falls Risk Assessment 09/05/2025 09/05/2024 Medicare Annual Wellness Visit 09/05/2025 09/05/2024 Social Influencers of Health Screening 09/05/2025 09/05/2024 Cholesterol Screening (Lipid Panel) 09/01/2029 09/01/2024, 11/22/2023, 11/22/2023 Hepatitis C Screening Completed 12/29/2021 Pneumococcal Vaccine: 50+ Years Completed 12/13/2023, 03/21/2021, 12/06/2017, Additional history exists Depression Screening Completed 09/05/2024 HIB Vaccines Aged Out No longer eligi ble based on patient's age to complete this topic HPV Vaccines Aged Out No longer eligi ble based on patient's age to complete this topic Hepatitis A Vaccines Aged Out No long er eligible based on patient's age to complete this topic Hepatitis B Vaccines Aged Out No long er eligible based on patient's age to complete this topic IPV Vaccines Aged Out No longer eligi ble based on patient's age to complete this topic MMR Vaccines Aged Out No longer eligi ble based on patient's age to complete this topic Meningococcal ACWY Vaccine Aged Out N o longer eligible based on patient's age to complete this topic Meningococcal B Vaccine Aged Out No l onger eligible based on patient's age to complete this topic RSV Immunization Patients Under 20 months Aged Out No longer eligible based on patient's age to complete this topic Varicella Vaccines Aged Out No longer eligible based on patient's age to complete this topic Procedures Procedure Name Priority Date/Time Associated Diagnosis Comments NM LEXISCAN STRESS TEST W/ MYOCARDIAL PERFUSION Routine 11/25/2024 12:16 PM EDT Atypical chest pain RESPIRATORY VIRUS PANEL MOLECULAR STUDY STAT 11/12/2024 4:17 PM EDT XR CHEST 2 VIEWS STAT 11/12/2024 2:52 PM EDT ECG 12-LEAD Routine 10/03/2024 10:48 AM EDT Atypical chest pain CT CHEST WO CONTRAST Routine 09/30/2024 2:32 PM EDT Chest pain at rest PULMONARY FUNCTION TESTING Routine 09/18/2024 12:43 PM EDT Chest pain at rest MICROALBUMIN CREATININE URINE RATIO Routine 09/01/2024 11:51 AM EDT Type 2 diabetes mellitus with diabetic chronic kidney disease ([facility] V24, [facility] V28) COMPREHENSIVE METABOLIC PANEL Routine 09/01/2024 11:51 AM EDT Type 2 diabetes mellitus with stage 2 chronic kidney disease, without long-term current use of insulin ([facility] V24, [facility] V28) HEMOGLOBIN A1C Routine 09/01/2024 11:51 AM EDT Type 2 diabetes mellitus with stage 2 chronic kidney disease, without long-term current use of insulin ([facility] V24, [facility] V28) LIPID PANEL WITH REFLEX TO DIRECT LDL Routine 09/01/2024 11:51 AM EDT Type 2 diabetes mellitus with stage 2 chronic kidney disease, without long-term current use of insulin ([facility] V24, [facility] V28) CT LUNG SCREENING LOW DOSE Routine 10/01/2023 4:44 PM EDT Personal history of nicotine dependence DIABETES EYE EXAM Routine 04/02/2023 HEPATITIS C SCREENING Routine 12/29/2021 COLONOSCOPY Routine 04/14/2014 from Last 3 Months or Most Recently Relevant to Health Maintenance Results * NM LEXISCAN STRESS TEST W/ MYOCARDIAL PERFUSION (11/25/2024 12:16 PM EDT) Exercise/inject ion duration (min) 0 CV PACS STRESS Exercise/inject ion duration (sec) 39 CV PACS STRESS Peak SBP 124 mmHg CV PACS STRESS Peak DBP 70 mmHg CV PACS STRESS Peak HR 95 bpm CV PACS STRESS Baseline HR 65 bpm CV PACS STRESS Baseline SBP 100 mmHg CV PACS STRESS Baseline DBP 58 mmHg CV PACS STRESS Estimated workload 1.0 METS CV PACS STRESS Percent HR 63 % CV PACS STRESS Rate Pressure Product 11,780.0 mmHg*bpm CV PACS STRESS Target HR 128 b[address] PACS STRESS [address] Depression (mm) 0 mm CV PACS STRESS TID 1.12 CV PACS STRESS Nuc Stress EF 47 % CV PAC S STRESS Nuc Rest EF 47 % CV PACS STRESS BSA 1.91 m2 CV PACS STRESS Nuc Stress EDV 147.0 mL CV PA CS STRESS Nuc Stress ESV 78.0 mL CV PA CS STRESS Anatomical Region Laterality Modality Nuclear Medicine 11/25/2024 10:4 6 AM EDT 11/25/2024 11:20 AM EDT Narrative 11/25/2024 5:02 PM EDT Vasodilator (regadenoson) stress test was performed . Patient reported no symptoms during the stress test. Normal blood pressure response. The study is consistent with exercise induced ischemia.Involving a small area at the apex.. In the setting of reduced left ventricular systolic function at rest and stress LV perfusion is abnormal. There is a left ventricular perfusion defect that is small in size with mild reduction in uptake present in the apical anterior and apex location(s) that is reversible. Globally reduced left ventricular systolic function equal at rest and stress at 47%. Stress: A standard James treadmill protocol was attempted but patient was only able to walk for 1.5 min before experiencing limiting knee pain and leg cramps. Converted to a pharmacologic protocol. A pharmacological stress test was performed using regadenoson, 0.4 mg IV over 10-15 seconds, followed by radiopharmacological injection 10 seconds post infusion. The patient reported no symptoms during the stress test. ECG: There were no ECG changes and no arrhythmias with regadenoson. Stress Findings A standard Ajmes treadmill protocol was attempted but patient was only able to walk for 1.5 min before experiencing limiting knee pain and leg cramps. Converted to a pharmacologic protocol. A pharmacological stress test was performed using regadenoson, 0.4 mg IV over 10-15 seconds, followed by radiopharmacological injection 10 seconds post infusion. Total stress time was 0 min and 39 sec. The patient reached the end of the protocol. Blood pressure demonstrated a normal response. Heart rate demonstrated a normal response. The patient reported no symptoms during the stress test. ECG 69 yo male with multiple cardiac risk factors with atypical chest pain. The ECG shows normal sinus rhythm. There were no ECG changes and no arrhythmias with regadenoson. Nuclear Study Quality Study technique: MPI, SPECT, multi, rest and stress, 1 day and gated. Overall image quality is good. CT attenuation correction was utilized. No radiopharmaceutical dose was extravasated. Perfusion Defect There is a left ventricular perfusion defect that is small in size with mild reduction in uptake present in the apical anterior and apex location(s) that is reversible.There is diaphragmatic attenuation that is corrected with attenuation correction Perfusion Defect Conclusion There is no evidence of transient ischemic dilation (TID). Stress Function Comments Left ventricular systolic function post-stress is abnormal. Global function is mildly reduced. Stress ejection fraction is 47%. The stress end diastolic cavity size is moderately enlarged. The stress end systolic cavity size is normal. Rest Function Comments Left ventricular function at rest was abnormal. Resting ejection fraction was 47%. Stress Combined Conclusion The study is consistent with exercise induced ischemia..Small area of mild anteroapical ischemia identified. With globally reduced left ventricular ejection fraction at rest and stress CT Findings Moderate coronary artery calcification on CT scan Perfusion Comments LV perfusion is abnormal. There is evidence of inducible ischemia.Mild anterior apical ischemia identified us Latha Cuevas MD CV STRESS PROCEDURES Final Res ult * (ABNORMAL) Respiratory virus panel molecular study (11/12/2024 4:17 PM EDT) Adenovirus Detection by PCR Not Detected Not Detected LAB MICROBIOLOGY METHOD 11/12/2024 5:[address] [facility] Influenza A PCR Not Detected Not Detected LAB MICROBIOLOGY METHOD 11/12/2024 5:[address] [facility] Influenza B PCR Not Detected Not Detected LAB MICROBIOLOGY METHOD 11/12/2024 5:[address] [facility] Coronavirus 229E Not Detected Not Detected LAB MICROBIOLOGY METHOD 11/12/2024 5:[address] [facility] Coronavirus HKU1 Not Detected Not Detected LAB MICROBIOLOGY METHOD 11/12/2024 5:[address] [facility] Coronavirus OC43 Not Detected Not Detected LAB MICROBIOLOGY METHOD 11/12/2024 5:[address] [facility] Coronavirus NL63 Not Detected Not Detected LAB MICROBIOLOGY METHOD 11/12/2024 5:[address] [facility] Parainfluenza Virus 1 Not Detected Not Detected LAB MICROBIOLOGY METHOD 11/12/2024 5:[address] [facility] Parainfluenza Virus 2 Not Detected Not Detected LAB MICROBIOLOGY METHOD 11/12/2024 5:[address] [facility] Parainfluenza Virus 3 Not Detected Not Detected LAB MICROBIOLOGY METHOD 11/12/2024 5:[address] [facility] Parainfluenza Virus 4 Not Detected Not Detected LAB MICROBIOLOGY METHOD 11/12/2024 5:[address] [facility] RSV PCR Not Detected Not Detected LAB MICROBIOLOGY METHOD 11/12/2024 5:[address] [facility] Human Metapneumovirus A and B Not Detected Not Detected LAB MICROBIOLOGY METHOD 11/12/2024 5:[address] [facility] Rhinovirus/Entero virus Detected(A ) Not Detected LAB MICROBIOLOGY METHOD 11/12/2024 5:[address] [facility] Bordetella pertussis Not Detected Not Detected LAB MICROBIOLOGY METHOD 11/12/2024 5:[address] [facility] Bordetella parapertussis Not Detected Not Detected LAB MICROBIOLOGY METHOD 11/12/2024 5:[address] [facility] Mycoplasma pneumo by PCR Not Detected Not Detected LAB MICROBIOLOGY METHOD 11/12/2024 5:[address] [facility] Chlamydia pneumoniae Not Detected Not Detected LAB MICROBIOLOGY METHOD 11/12/2024 5:[address] [facility] SARS COV-2 Not Detected Not Detected LAB MICROBIOLOGY METHOD 11/12/2024 5:[address] [facility] Swab Both anterior nares / Unknown Non-blood Collection / Unknown 11/12/2024 4:17 PM EDT 11/12/2024 4:[address] [facility] - 11/12/2024 5:24 PM EDT Testing was performed using the [place] Respiratory Pathogen PCR Assay. All results must be correlated with the clinical findings. Results should not be used as the sole basis for diagnosis. False Negative results may occur from the presence of sequence variants in the region targeted by the assay or the presence of inhibitors. Results may be affected by concurrent antiviral/antimicrobial therapy or levels of organisms that are below the limit of detection. us Cirilo Barroso MD LAB MICROBIOLOGY - GENERAL ORDER JUDD Final Result [facility] [address] [place] [address], * XR Chest 2 Views (11/12/2024 2:52 PM EDT) Anatomical Region Laterality Modality Body Radiographic Nela ging 11/12/2024 4:35 PM EDT Impressions 11/12/2024 4:35 PM EDT FINDINGS/IMPRESSION: Hyperinflation. Normal heart size and pulmonary vascularity. Lungs are clear and costophrenic angles are sharp. No acute osseous abnormality. -------- FINAL REPORT -------- Dictated By: Carolyn Gusman Dictated Date: 11/12/2024 16:35 ET Assigned Physician: Carolyn Gusman Reviewed and Electronically Signed By: Carolyn Gusman Signed Date: 11/12/2024 16:35 ET Workstation ID: [id number] Transcribed By: Self Edit Transcribed Date: 11/12/2024 16:35 ET Narrative 11/12/2024 4:35 PM EDT XR CHEST 2 VIEWS INDICATION: dyspnea TECHNIQUE: XR CHEST 2 VIEWS COMPARISON: No priors available. Procedure Note Carolyn Gusman MD - 11/12/2024 XR CHEST 2 VIEWS INDICATION: dyspnea TECHNIQUE: XR CHEST 2 VIEWS COMPARISON: No priors available. IMPRESSION: FINDINGS/IMPRESSION: Hyperinflation. Normal heart size and pulmonaryvascularity. Lungs are clear and costophrenic angles are sharp. No acuteosseous abnormality. -------- FINAL REPORT -------- Dictated By: Carolyn Gusman Dictated Date: 11/12/2024 16:35 ET Assigned Physician: Carolyn Gusman Reviewed and Electronically Signed By: Carolyn Gusman Signed Date: 11/12/2024 16:35 ET Workstation ID: [id number] Transcribed By: Self Edit Transcribed Date: 11/12/2024 16:35 ET us Cirilo Barroso MD IMG XR PROCEDURES Final Result * ECG 12 lead (10/03/2024 10:48 AM EDT) Ventricular Rate ECG 79 BPM GEMUSE Atrial Rate 79 BPM GEMUSE P-R Interval 190 ms GEMUSE QRS Duration 86 ms GEMUSE Q-T Interval 356 ms GEMUSE QTc 408 ms GEMUSE P Wave [place] 65 degrees GEMUSE R [place] 39 degrees GEMUSE T [place] -28 degrees GEMUSE ECG Interpretation Normal sinus rhythm Minimal voltage criteria for LVH, may be normal variant T wave abnormality, consider inferior ischemia Abnormal ECG When compared with ECG of 24-APR-2017 15:03, Criteria for Inferior infarct are no longer Present T wave inversion more evident in Inferior leads Confirmed by LATHA CUEVAS ([id number]) on 10/03/2024 10:55:15 AM GEMUSE 10/03/2024 10:4 8 AM EDT 10/03/2024 10:55 AM EDT us Latha Cuevas MD ECG ORDERABLES Final Result GEM[facility] * CT Chest wo Contrast (09/30/2024 2:32 PM EDT) Anatomical Region Laterality Modality Body Computed Tomogra phy 10/02/2024 1:54 PM EDT Impressions 10/02/2024 2:13 PM EDT No acute findings. Stable CT appearance of the chest compared with 10/01/2023. -------- FINAL REPORT -------- Dictated By: Raffaele Jarrett Dictated Date: 10/02/2024 13:54 ET Assigned Physician: Raffaele Jarrett Reviewed and Electronically Signed By: Raffaele Jarrett Signed Date: 10/02/2024 14:13 ET Workstation ID: [id number] Transcribed By: Self Edit Transcribed Date: 10/02/2024 14:08 ET Narrative 10/02/2024 2:13 PM EDT PROCEDURE: CT of the chest without intravenous contrast. TECHNIQUE: CT of the chest without intravenous contrast administration. Coronal and sagittal reformats and MIP reconstructions were created. Dose length product: 257 mGy-cm. HISTORY: Chest pain, pulmonary origin suspected COMPARISON: 09/25/2023. FINDINGS: LUNGS/PLEURA: There is mild mucosal thickening at the lung bases with a few foci of segmental mucous plugging in the right middle lobe. Stable small scattered bilateral pulmonary nodules. The largest is a 7 mm left lower lobe nodule on series 3, image 212. Mild centrilobular emphysema. No pleural effusion or pneumothorax. MEDIASTINUM/FELICIANO: Mildly patulous esophagus. No mediastinal mass or lymphadenopathy. No appreciable hilar lymphadenopathy on limited noncontrast evaluation. VASCULATURE: Normal caliber pulmonary arteries. Moderate atherosclerotic calcifications of the aorta and great vessels. Stable mild prominence of the ascending aorta, which measures 3.8 cm. CARDIAC: Normal heart size. Severe coronary artery calcification. CHEST WALL: No axillary or supraclavicular lymphadenopathy. LIMITED ABDOMEN: Unremarkable. BONES: Mild degenerative changes of the spine and shoulders. Procedure Note Raffaele Jarrett MD - 10/02/2024 PROCEDURE: CT of the chest without intravenous contrast. TECHNIQUE: CT of the chest without intravenous contrast administration.Coronal and sagittal reformats and MIP reconstructions were created. Dose length product: 257 mGy-cm. HISTORY: Chest pain, pulmonary origin suspected COMPARISON: 09/25/2023. FINDINGS: LUNGS/PLEURA: There is mild mucosal thickening at the lung bases with afew foci of segmental mucous plugging in the right middle lobe. Stablesmall scattered bilateral pulmonary nodules. The largest is a 7 mm leftlower lobe nodule on series 3, image 212. Mild centrilobular emphysema.No pleural effusion or pneumothorax. MEDIASTINUM/FELICIANO: Mildly patulous esophagus. No mediastinal mass orlymphadenopathy. No appreciable hilar lymphadenopathy on limitednoncontrast evaluation. VASCULATURE: Normal caliber pulmonary arteries. Moderate atheroscleroticcalcifications of the aorta and great vessels. Stable mild prominence ofthe ascending aorta, which measures 3.8 cm. CARDIAC: Normal heart size. Severe coronary artery calcification. CHEST WALL: No axillary or supraclavicular lymphadenopathy. LIMITED ABDOMEN: Unremarkable. BONES: Mild degenerative changes of the spine and shoulders. IMPRESSION: No acute findings. Stable CT appearance of the chest compared with10/01/2023. -------- FINAL REPORT -------- Dictated By: Raffaele Jarrett Dictated Date: 10/02/2024 13:54 ET Assigned Physician: Raffaele Jarrett Reviewed and Electronically Signed By: Raffaele Jarrett Signed Date: 10/02/2024 14:13 ET Workstation ID: [id number] Transcribed By: Self Edit Transcribed Date: 10/02/2024 14:08 ET Dieter Pollack MD IMG CT PROCEDURES Final Resu lt * Pulmonary function testing: Carbon Monoxide Diffusing Capacity, Helium Dilution Lung Volumes, Flow Volume Loop, Spirometry with Bronchodilator, Spirometry, Vital Capacity Test (09/18/2024 12:43 PM EDT) Impressions Dieter Pollack MD - 09/18/2024 12:43 PM EDT Spirometry done today reveals FEV1 of 3.13 which is 104% of the predicted value, FVC is 3.72 which is 87% of the predicted value, FEV1 to FVC ratio is a 19% of the predicted value, there is no bronchodilator response. Flow volume is consistent with normal pattern. Static lung volumes are within normal limit [id number]. Diffusion lung capacity is moderately reduced and remained moderately reduced after correction for alveolar volume. This study is consistent with normal spirometry and lung volumes, there is isolated reduction in diffusion lung capacity for which clinical correlation is advised. us Dieter Pollack MD PFT ORDERABLES Final Result * (ABNORMAL) Lipid panel with reflex to direct LDL (09/01/2024 11:51 AM EDT) Cholesterol 161 0 - 200 mg/dL LAB CHEMISTRY METHOD 09/01/2024 8:[address] [facility] Triglycerides 224(H) 0 - 150 mg/dL LAB CHEMISTRY METHOD 09/01/2024 8:[address] [facility] HDL 38(L) >=40 mg/dL [facility] LDL Calculated 78 0 - 100 mg/dL LAB CHEMISTRY METHOD [facility] VLDL Cholesterol Luis 44.8 mg/dL LAB CHEMISTRY METHOD 09/01/2024 8:00 PM [facility] Non HDL Chol. (LDL+VLDL) 123 <145 mg/dL LAB CHEMISTRY METHOD [facility] Chol/HDL Ratio 4.2 0.0 - 4.4 LAB CHEMISTRY METHOD 09/01/2024 8:00 PM [facility] Blood Venous blood specimen / Unknown Venipuncture / Unknown 09/01/2024 11:51 AM EDT 09/01/2024 11:51 AM EDT us Aldo Page MD LAB BLOOD ORDERABLES Final Res ult [facility] [address] [place] [address], [place] [phone] * (ABNORMAL) Microalbumin creatinine urine ratio (09/01/2024 11:51 AM EDT) Creatinine, Urine 148.0 mg/dL LAB CHEMISTRY METHOD 09/01/2024 9:[address] [facility] Microalb, Ur 33.1(H) 0.0 - 29.0 mg/L LAB CHEMISTRY METHOD 09/01/2024 9:[address] [facility] Microalb/Crea t Ratio 22 <30 mg/g creat LAB CHEMISTRY METHOD 09/01/2024 9:[address] [facility] Urine Urine specimen obtained by clean catch procedure / Unknown Non-blood Collection / Unknown 09/01/2024 11:51 AM EDT 09/01/2024 11:51 AM EDT us Aldo Page MD LAB URINE ORDERABLES Final Res ult Performing Organization Address [facility]/ZIP Co de Phone Number [facility] [address] [place] [address], [place] [phone] * (ABNORMAL) Hemoglobin A1c (09/01/2024 11:51 AM EDT) Hemoglobin A1C 10.2(H) <6.5 % LAB CHEMISTRY METHOD 09/01/2024 9:[address] [facility] Mean Bld Glu Estim. 246 mg/dL LAB CHEMISTRY METHOD 09/01/2024 9:[address] [facility] Blood Venous blood specimen / Unknown Venipuncture / Unknown 09/01/2024 11:51 AM EDT 09/01/2024 11:51 AM EDT us Aldo Page MD LAB BLOOD ORDERABLES Final Res ult [facility] [address] [place] [address], [place] [phone] * (ABNORMAL) Comprehensive metabolic panel (09/01/2024 11:51 AM EDT) Sodium 140 133 - 145 mmol/L LAB CHEMISTRY METHOD 09/01/2024 8:[address] [facility] Potassium 3.5 3.5 - 5.5 mmol/L LAB CHEMISTRY METHOD 09/01/2024 8:03 PM [facility] Chloride 106 96 - 110 mmol/L LAB CHEMISTRY METHOD 09/01/2024 8:03 PM [facility] CO2 24 21 - 32 mmol/L LAB CHEMISTRY METHOD 09/01/2024 8:03 PM [facility] Anion Gap 10 3 - 11 LAB CHEMISTRY METHOD 09/01/2024 8:03 PM [facility] Glucose 314(H) 70 - 100 mg/dL LAB CHEMISTRY METHOD 09/01/2024 8:03 PM [facility] BUN 17 5 - 25 mg/dL LAB CHEMISTRY METHOD 09/01/2024 8:03 PM [facility] Creatinine 1.26 0.70 - 1.30 mg/dL LAB CHEMISTRY METHOD 09/01/2024 8:03 PM [facility] eGFR 62 >=60 mL/min/1. 73m2 LAB CHEMISTRY METHOD 09/01/2024 8:03 PM [facility] Comment:Calculation based on the Chronic Kidney Disease Epidemiology Collaboration (CKD-EPI) equation refit without adjustment for race. BUN/Creatinine Ratio 13.5 LAB CHEMISTRY METHOD 09/01/2024 8:03 PM [facility] Calcium 8.6 8.5 - 10.5 mg/dL LAB CHEMISTRY METHOD 09/01/2024 8:03 PM [facility] AST (SGOT) 13 10 - 42 unit/L LAB CHEMISTRY METHOD 09/01/2024 8:03 PM [facility] ALT (SGPT) 22 10 - 60 unit/L LAB CHEMISTRY METHOD 09/01/2024 8:03 PM [facility] Alkaline Phosphatase 59 42 - 121 unit/L LAB CHEMISTRY METHOD 09/01/2024 8:03 PM [facility] Total Protein 7.1 6.0 - 8.0 g/dL LAB CHEMISTRY METHOD 09/01/2024 8:[address] [facility] Albumin 3.9 3.2 - 5.0 g/dL LAB CHEMISTRY METHOD 09/01/2024 8:[address] [facility] Total Bilirubin 0.4 0.0 - 1.4 mg/dL LAB CHEMISTRY METHOD 09/01/2024 8:[address] [facility] Blood Venous blood specimen / Unknown Venipuncture / Unknown 09/01/2024 11:51 AM EDT 09/01/2024 11:51 AM EDT us Aldo Page MD LAB BLOOD ORDERABLES Final Res ult [facility] [address] [place] [address], * CT LUNG SCREENING LOW DOSE (10/01/2023 4:44 PM EDT) Anatomical Region Laterality Modality Computed Tomogra phy 09/25/2023 2:25 PM EDT Narrative 10/01/2023 4:[address] [facility] Diagnostic Imaging Department [address] [place] [address] Patient: FELIPEBETYO.B./Age/Sex: 1955 - 68 - M Unit#: [id number] Location/Status: SPDICATLS/REG CLI Mnemonic/Ordering Site: [facility] Ordering Physician: NITHYA MURPHY MD CT Lung Screening Low Dose - 09/25/23 - 5350 Report Status:Signed Chest CT, 09/25/2023. TECHNIQUE: Low-dose CT of the chest without intravenous contrast administration. Coronal and sagittal reformats and MIP reconstructions were created. Dose length product: 116 mGy-cm. HISTORY: LOW DOSE LUNG SCREENING COMPARISON: 08/20/2022. FINDINGS: Lungs/pleura: The central airways are clear and normal in caliber. Stable 6 mm nodule in the lateral left lower lobe, series 3 image 216. There are a few other scattered tiny calcified nodules measuring 1--2 mm. Mild centrilobular emphysema. No suspicious nodule or mass. No pleural effusion or pneumothorax. Mediastinum/feliciano: No mediastinal mass or lymphadenopathy. No appreciable hilar lymphadenopathy on limited noncontrast evaluation. Cardiac: Normal heart size. Extensive coronary artery calcification. Vasculature: Moderate atherosclerotic calcifications. Normal caliber pulmonary arteries. Chest wall: No mass or lymphadenopathy. Limited abdomen: Normal. Bones: Mild degenerative changes of the spine. IMPRESSION: Lung RADS 2. Guidelines recommend repeat low-dose screening CT in 12 months. Dictating Physician: RAFFAELE JARRETT MD Electronically Signed by: RAFFAELE JARRETT MD Dic Date/Time: 10/01/23 1637 Sign date/Time: 10/01/23 1644 Procedure Note Raffaele Jarrett MD - 12/26/2023 [facility] Diagnostic Imaging Department [address] [place] [address] Patient: BETY FELIPE./Age/Sex: 1955 - 68 - M Unit#: [id number] Location/Status: SPDICATLS/REG CLI Mnemonic/Ordering Site: [facility] Ordering Physician: NITHYA MURPHY MD CT Lung Screening Low Dose - 09/25/23 - 1435 Report Status:Signed Chest CT, 09/25/2023. TECHNIQUE: Low-dose CT of the chest without intravenous contrast administration. Coronal and sagittal reformats and MIP reconstructionswere created. Dose length product: 116 mGy-cm. HISTORY: LOW DOSE LUNG SCREENING COMPARISON: 08/20/2022. FINDINGS: Lungs/pleura: The central airways are clear and normal in caliber. Stable6 mm nodule in the lateral left lower lobe, series 3 image 216. There are afew other scattered tiny calcified nodules measuring 1--2 mm. Mildcentrilobular emphysema. No suspicious nodule or mass. No pleural effusion orpneumothorax. Mediastinum/feliciano: No mediastinal mass or lymphadenopathy. No appreciablehilar lymphadenopathy on limited noncontrast evaluation. Cardiac: Normal heart size. Extensive coronary artery calcification. Vasculature: Moderate atherosclerotic calcifications. Normal caliberpulmonary arteries. Chest wall: No mass or lymphadenopathy. Limited abdomen: Normal. Bones: Mild degenerative changes of the spine. IMPRESSION: Lung RADS 2. Guidelines recommend repeat low-dose screening CT in 12months. Dictating Physician: RAFFAELE JARRETT MD Electronically Signed by: RAFFAELE JARRETT MD Dic Date/Time: 10/01/23 1637 Sign date/Time: 10/01/23 1644 Nithya Murphy MD IMG CT PROCEDURES Final Result * Diabetes Eye Exam (04/02/2023) [facility] Diabetes: Annual Retina Eye Exam abstracted Onel Provider HEALTH MAINTENANCE Final Result * Hepatitis C Screening (12/29/2021) [facility] Hepatitis C Screening abstracted us Historical Provider HEALTH MAINTENANCE Edited Result - Final * Colonoscopy (04/14/2014) Pathologist [facility] Colonoscopy abstracted, no interpretation Anatomical Region Laterality Modality Other us Historical Provider HEALTH MAINTENANCE Final Result from Last 3 Months or Most Recently Relevant to Health Maintenance Additional Health Concerns Infection Onset Date Last Indicated Enterovirus 11/12/2024 11/12/2024 Rhinovirus 11/12/2024 11/12/2024 Insurance [employer] MED[employer]ARE [employer]VANTAGE Care Teams Strategic Client Executive Relationship Specialty Start Date End Date Aldo Page MD [address] [place] [id number] PCP - General Internal Medicine 06/10/14
--- OUTSIDE RECORDS SUMMARY | 2024-12-05 14:24 | XMS_ITS | Clinical Summary ---
Author Organization [facility] Address [address] [place] [address] Care Team Providers Care Program Arranger Name Role Phone Unavailable Primary Care Provider Unavailabl e Social History Tobacco Use Types Packs/Day Years Used Date Smoking Tobacco: Never Assessed Sex and Gender Information Value Date Recorded Sex Assigned at Not on file Legal Sex Male 11:57 AM EDT Gender Identity Not on file Sexual Orientation Not on file Plan of Treatment Health Maintenance Due Date Last Done Comments Advance Care Planning 1955 Hepatitis C Virus Screening 1955 DTaP/Tdap/Td Vaccines (1 - Tdap) 1974 Pneumococcal Vaccines 50+ (1 of 1 - PCV) 2005 Zoster (Shingles) Vaccine (1 of 2) 2005 COVID-19 Vaccine ( - 2023-2 5 season) 2024 RSV Vaccine 60 years and old er and Patients (1 - 1-dose 75+ series) 2030 Hepatitis B Vaccines Aged Out No long er eligible based on patient's age to complete this topic
== END 2024-12-05 14:02 | disposition home or self-care (01) ==
LOC: HO.HPS 13:02
PROVIDERS: PCP Internal Medicine; Referring Provider Internal Medicine; Visit Provider Hospitalist
DX: J41.8 Mixed simple and mucopurulent chronic bronchitis (principal); J43.2 Centrilobular emphysema
CPT/HCPCS: 99204

== ENCOUNTER → 2024-12-05 13:02 | Outpatient (BNVA) | payer MEDICARE, SELFPAY | PROVIDERS: PCP Internal Medicine; Referring Provider Internal Medicine; Visit Provider Hospitalist | DX: J41.8 Mixed simple and mucopurulent chronic bronchitis (principal); J43.2 Centrilobular emphysema | CPT/HCPCS: 99202 ==

== ENCOUNTER 2024-12-31 11:57 | Outpatient (REF) | payer MEDICARE, SELFPAY ==
[2024-12-31 13:30] LABS: Prostate Specific Antigen 1.77 ng/mL (<0.05-4.0)
== END 2024-12-31 11:58 | disposition home or self-care (01) ==
LOC: HO.LAB 11:57
PROVIDERS: PCP Internal Medicine; Visit Provider Urology
DX: Z12.5 Encounter for screening for malignant neoplasm of prostate (principal); N40.1 Benign prostatic hyperplasia with lower urinary tract symptoms; N13.8 Other obstructive and reflux uropathy
CPT/HCPCS: 36415; 84153